=== PATIENT | male | born 1960 | race Caucasian/White ===

== ENCOUNTER 2024-01-16 17:49 | Inpatient (IN) ==
[2024-01-16] MEDS: SODIUM CHLORIDE 0.9% 1,000 ML IV ONE (18:24)
--- NOTE | 2024-01-16 18:41 | Emergency Department Note ---
Impression & Plan Acute renal failure (ARF), COVID-19 ED Provider Note Provider: Kerwin Boggs MD CHIEF COMPLAINT: Abnormal blood work, week of flu symptoms HISTORY OF PRESENT ILLNESS: Patient is a 63-year-old gentleman history of hypertension, GERD, and alcohol use presenting here today after abnormal blood work after an office visit today. Was in for chronic evaluation but states over the past week has had flulike symptoms. States has had a bit of a cough and some low-grade fevers and aches and pains and cramping. Nausea vomiting and diarrhea nonbloody reported. Little nauseous at times but denies any significant abdominal pain. Denies feeling significantly short of breath. Denies a history of kidney issues. Was called by his doctor's office as his blood work showed significant renal/kidney dysfunction was sent here for evaluation. Patient states has been trying to hydrate some has not vomited today but did have a little bit of diarrhea earlier. Limited food intake the last several days. Patient states he has been urinating although maybe a little darker than normal. PAST MEDICAL HISTORY: As noted above MEDICATIONS: Reviewed home medications SOCIAL HISTORY: , snuff, regular alcohol use PHYSICAL EXAM: GENERAL: alert and oriented in no acute distress on stretcher Head: normocephalic and atraumatic EYES: No injection, discharge or icterus. NECK: Trachea midline. Good range of motion ENT: Mucous membranes pink and moist. Pharynx without erythema or exudate. LUNGS: Airway patent. No retractions. Breath sounds clear with good air entry bilaterally. HEART: Regular rate and rhythm. No chest wall tenderness ABDOMEN: Soft and non-tender, without guarding or rebound. No masses appreciable SKIN: Acyanotic, warm, dry, without rashes EXTREMITIES: Without swelling, tenderness or deformity NEUROLOGICAL: No focal deficits. No aphasia. No facial droop or slurred speech. Normal strength and tone in the extremities. Sensation to gross touch normal. Ambulatory. EK bpm sinus bradycardia. No PVC or PAC. No acute ST segment elevation or depression with nonspecific T wave changes. QTc 453. CONTINUOUS CARDIAC MONITORING: was ordered and showed a heart rate of 50s to 60s bpm in sinus rhythm to sinus bradycardia Patient's laboratory studies and imaging reviewed. Differential includes Infection, dehydration, metabolic abnormality, hypo/hyperglycemia, electrolyte disturbance, anemia, hypoxia, cardiac sources, intracerebral event, toxicologic, neurologic, as well as other pathologies. IMPRESSION/MEDICAL DECISION MAKING: Vitals upon arrival with some bradycardia but no hypoxia, fever, or hypertension.. Viral panel sent given his week of symptoms. [id number] blood work and formal labs were sent seems to confirm evidence of significant acute renal dysfunction. Given a liter of IV fluid. Will obtain Noncon CT of the abdomen pelvis to look for any obstructive findings. Blood work without evidence of leukocytosis significant anemia. Will send troponin but no active chest pain reported. TSH earlier is normal. With his cough chest x-ray obtained. CT abdomen pelvis with evidence of hydronephrosis or stone. No bladder distention. No pleural effusions noted. Again formal blood work here also confirms mild hyponatremia but normal potassium and significantly of a creatinine of 18. No evidence of acute hepatitis noted. No CK or troponin elevation. Patient denies any NSAID usage. Has been taking his home blood pressure medicines. Does drink alcohol regular but not the last several days he has been sick. Patient does not seen any distress and do not see an emergent indication for dialysis at this time. Again started some rehydration and will bring in for further care and evaluation. Discussed with the hospitalist and did discuss with nephrology. Does incidentally test positive for COVID-19 likely inciting his weakness and URI symptoms. Did discuss with nephrology per hospitalist discussion and they will evaluate in the morning. DIAGNOSIS: Acute renal failure, COVID-19 DISPOSITION: Hospitalist will evaluate Patient was agreeable with this plan. 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 Alcohol dependence (Acute) Gout (Chronic) hx AA (alcohol abuse) (Chronic 02/21/12) Medical History Tinnitus of left ear History of seizure 30+ years ago "They don't even know what caused it. 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 No issues since Surgical History Hx of umbilical hernia repair H/O wisdom tooth extraction S/P T&A (status post tonsillectomy and adenoidectomy) Family History Father Myocardial infarction Other No family history of adverse response to anesthesia Denies family history of Ovarian cancer Prostate cancer Breast cancer Colorectal cancer Social History Smoking Status: Never smoker Tobacco Type: Smokeless Tobacco (Dip or Chew) Age Started Using Tobacco: 14; packs per day: 1; Second Hand Exposure: No; Do You Dip or Chew Tobacco: Yes; Hx Alcohol Use: Yes Alcohol type: beer Alcohol type Comment: 5 beers per day Alcohol Intake Frequency: Monthly or Less Hx Substance Use: No Preferred Language: Lao Communication Ability: Effective Visual Impairment: No Limitations Hearing Ability: Normal Branch Assistant Required: No Beliefs That Will Affect Care: None marital status: Current Living Situation: Spouse current occupational status: unemployed 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 How many Children do You have: 1 Other Information That Helps Us Care for You: No Feels Safe at Home: Yes Safety Concerns: Feels Safe At This Time Childhood Exposure to Second-Hand Smoke: Yes Diet: regular caffeine: Yes during the past year weight has: remained stable Dental Care, Regularly: Yes Physical Activity Frequency: Daily Seatbelt Use: always Sunscreen Use: Yes Assistive Devices: Contacts, Denture - Upper and Denture - Lower Allergies Allergies Allergy/AdvReac Type Severity Reaction Status Date / Time No Known Allergies Allergy Verified 01/16/24 09:51 Home Meds Home Medications Medication Instructions Recorded Confirmed allopurinol 100 mg tablet 100 mg PO QAM 11/27/23 01/16/24 cetirizine 10 mg tablet (Zyrtec) 10 mg PO HS PRN Allergies 11/27/23 01/16/24 famotidine 40 mg tablet (Pepcid) 40 mg PO BID PRN Acid Reflux 11/27/23 01/16/24 lisinopril 30 mg tablet 30 mg PO QAM 11/27/23 01/16/24 Previous Rx's Medication Instructions Recorded sildenafil 50 mg tablet 50 mg PO DAILY PRN sexual activity 04/20/23 #10 tabs indomethacin 50 mg capsule 50 mg PO BID PRN Gout Flare #60 06/07/23 caps amlodipine 10 mg tablet 10 mg PO HS #90 tabs 10/10/23 benzonatate 200 mg capsule 200 mg PO TID PRN cough #30 caps 01/10/24 ondansetron HCl 4 mg tablet 4 mg PO Q8H PRN nausea and 01/10/24 vomiting #30 tabs Results & Data (ED) Vital Signs Vital Signs - 24 hr 01/16/24 17:52 01/16/24 18:08 01/16/24 18:08 Temperature 36.0 C L Temperature Source Temporal Artery Scan Pulse Rate 63 Pulse Rate [Apical] 56 L Pulse Rhythm [Apical] Pulse Strength [Apical] Respiratory Rate 18 20 Respiratory Effort / Characteristics Non-Labored Respiratory Depth Normal Respiratory Pattern Blood Pressure 102/65 Blood Pressure [Right Arm] 132/73 Blood Pressure Mean 77 Blood Pressure Mean [Right Arm] 92 Blood Pressure Position [Right Arm] Pulse Oximetry 98 100 100 Oxygen Delivery Method Room Air Room Air Room Air Sepsis Recent Fever Within 48 Hours No Sepsis New/Unexplained Change in Mental Status N/A Sepsis Action Taken by Nursing No Action Required 01/16/24 18:10 01/16/24 20:00 Temperature Temperature Source Pulse Rate 58 L Pulse Rate [Apical] 61 Pulse Rhythm [Apical] Regular Pulse Strength [Apical] Normal Respiratory Rate 18 Respiratory Effort / Characteristics Non-Labored Respiratory Depth Normal Respiratory Pattern Regular Blood Pressure Blood Pressure [Right Arm] 96/55 L Blood Pressure Mean Blood Pressure Mean [Right Arm] 68 Blood Pressure Position [Right Arm] Sitting Pulse Oximetry 98 Oxygen Delivery Method Room Air Sepsis Recent Fever Within 48 Hours Sepsis New/Unexplained Change in Mental Status Sepsis Action Taken by Nursing Laboratory Data 01/16/24 18:10 01/16/24 22:37 Lab Results 01/16/24 01/16/24 Range/Units 18:10 18:31 WBC 7.94 (4.8-10.8) K/ul RBC 4.28 L (4.70-6.10) M/uL Hgb 14.3 (14.0-18.0) g/dl POC Hgb 12.6 L (14.0-18.0) g/dl Hct 38.7 L (42.0-52.0) % POC Hct 37 L (42-52) % MCV 90.4 (80.0-100.0) fL MCH 33.4 (25.0-34.0) pg MCHC 37.0 H (32.0-36.0) g/dL RDW Std Deviation 40.6 (36.4-46.3) fL RDW Coeff of Fuad 12.4 (11.5-14.5) % Plt Count 242 (130-400) K/uL MPV 10.7 (9.4-12.4) fL Immature Gran % (Auto) 0.6 % Neut % (Auto) 59.1 % Lymph % (Auto) 28.8 % [facility] % (Auto) 10.6 % Eos % (Auto) 0.5 % Baso % (Auto) 0.4 % Neut # (Auto) 4.69 (1.40-6.50) K/uL Lymph # (Auto) 2.29 (1.20-3.40) K/uL [facility] # (Auto) 0.84 H (0.11-0.59) K/uL Eos # (Auto) 0.04 (0.00-0.50) K/uL Baso # (Auto) 0.03 (0.00-0.20) K/uL Immature Gran # (Auto) 0.05 (0.01-0.20) K/uL PT 12.3 H (9.0-12.0) Seconds INR 1.1 (0.9-1.1) POC Sodium 131 L (135-144) mmol/L Sodium 132 L (136-145) mmol/L POC Potassium 3.4 (3.3-5.0) mmol/L Potassium 3.5 (3.5-5.1) mmol/L POC Chloride 100 L (101-112) mmol/L Chloride 96 L (98-107) mmol/L Carbon Dioxide 12 L (21-32) mmol/L POC Total CO2 12 L (24-31) mmol/L Anion Gap 24 H (3-11) POC Anion Gap 23.0 (16-25) mmol/L POC BUN 72 H (7-18) mg/dl BUN 72 H (6-23) mg/dl Creatinine 18.05 H* (0.6-1.4) mg/dl POC Creatinine > 20.0 H* (0.6-1.3) mg/dl Est Cr Clr Drug Dosing 4.5 ml/min eGFR 2.63 BUN/Creatinine Ratio 4.0 L (10-20) Glucose 114 H (70-99(Fasting)) mg/dl POC Glucose (other) 109 H (70-99) mg/dl Calcium 7.7 L (8.6-10.3) mg/dl POC Ioniz Calcium Sherry 0.92 L (1.12-1.32) mmol/l Magnesium 1.8 (1.7-2.4) mg/dl Total Bilirubin 0.5 (0.2-1.0) mg/dl AST 6 L (13-39) U/L ALT 12 (7-52) U/L Alkaline Phosphatase 71 (34-104) U/L Total Creatine Kinase 116 (30-223) U/L Troponin I High Sens 15.1 (0-20) pg/ml Total Protein 7.7 (6.0-8.3) gm/dl Albumin 4.2 (3.4-5.0) gm/dl Globulin 3.5 (2.5-4.0) gm/dl Albumin/Globulin Ratio 1.2 (0.9-2) Lipase 142 H (11-82) U/L Adenovirus (PCR) Not Detected (NotDetected) B. pertussis DNA (PCR) Not Detected (NotDetected) B.parapertussis DNA PCR Not Detected (NotDetected) C. pneumoniae DNA (PCR) Not Detected (NotDetected) Coronavirus OC43 (PCR) Not Detected (NotDetected) Coronavirus HKU1 (PCR) Not Detected (NotDetected) Coronavirus 229E (PCR) Not Detected (NotDetected) SARS-CoV-2 (PCR) DETECTED A (NotDetected) Coronavirus NL63 (PCR) Not Detected (NotDetected) Human Metapneumovir PCR Not Detected (NotDetected) Influenza Type A (PCR) Not Detected (NotDetected) Influenza Type B (PCR) Not Detected (NotDetected) M. pneumoniae (PCR) Not Detected (NotDetected) Parainfluenza 1 (PCR) Not Detected (NotDetected) Parainfluenza 2 (PCR) Not Detected (NotDetected) Parainfluenza 3 (PCR) Not Detected (NotDetected) Parainfluenza 4 (PCR) Not Detected (NotDetected) RSV (PCR) Not Detected (NotDetected) Entero/Rhino (PCR) Not Detected (NotDetected) Administered Medications Sodium Bicarbonate 150 meq/ (Dextrose) 1,150 mls @ 125 mls/hr IV .Q9H12M NARINDER Stop: 01/17/24 19:59 Last Admin: 01/16/24 21:12 Dose: 125 mls/hr Documented By: BETTY Discontinued Medications Sodium Chloride (Nss) 1,000 mls @ 999 mls/hr IV .Q1H1M ONE Stop: 01/16/24 19:20 Last Infusion: 01/16/24 19:28 Dose: Infused Documented By: Admin: 01/16/24 18:24 Dose: 999 mls/hr Documented By: [facility] Imaging Data Radiologist's Impression: Chest X-Ray 01/16/24 18:20 Exam(s): XR CXR 1 VIEW EXAM: XR Chest, 1 View CLINICAL HISTORY: Reason for exam: cough, weak. TECHNIQUE: Frontal view of the chest. COMPARISON: Chest radiograph on 11/24/2021 FINDINGS: Hardware: None. Lungs/pleura: Mild bibasilar atelectasis. No focal consolidation. No pleural effusion or pneumothorax. Heart/mediastinum: Borderline size of the cardiac silhouette. Soft tissues: Unremarkable. Bones: No acute fracture. Upper abdomen: Normal. IMPRESSION: No acute disease identified. Electronically signed by: Chris Briones M.D. 01/16/24 20:19 PM Abdomen/Pelvis CT 01/16/24 18:33 EXAM: CT Abdomen and Pelvis Without Intravenous Contrast INDICATION: Elevated renal function on routine blood work. TECHNIQUE: Axial computed tomography images of the abdomen and pelvis without intravenous contrast. Sagittal and coronal reformatted images were created and reviewed. This CT exam was performed using one or more of the following dose reduction techniques: automated exposure control, adjustment of the mA and/or kV according to patient size, and/or use of iterative reconstruction technique. COMPARISON: No relevant prior studies available. FINDINGS: Limitations: None. Lung bases: No abnormality noted. Pleural space: No visualized pleural effusion or pneumothorax. Heart: No abnormality noted. Mediastinum: No abnormality noted. ABDOMEN: Liver: Mild lobular appearance of the liver. No ductal dilatation. No visible mass. Gallbladder and bile ducts: Small gallstones noted. No ductal dilatation or stone. Pancreas: No pancreatic mass, calcification, inflammation or ductal dilation noted. Spleen: The spleen is enlarged measuring 13.5 cm long. Adrenals: No significant abnormality noted. Kidneys and ureters: No abnormality noted. No stones. No hydronephrosis. No significant perinephric fluid. Stomach and bowel: No distension or mucosal thickening. No inflammation noted. PELVIS: Appendix: Well seen and appears normal. Bladder: Incompletely distended and not optimally assessed. No gas or stone. Reproductive: No abnormalities noted. ABDOMEN and PELVIS: Intraperitoneal space: No free air. No significant fluid collection. Bones/joints: Degenerative changes noted throughout the spine. No acute osseous abnormality seen. Soft tissues: Bilateral inguinal hernias. Vasculature: Mild atherosclerosis scattered throughout the aorta. No aneurysm. Lymph nodes: No pathologically enlarged lymph nodes. IMPRESSION: 1. No hydronephrosis or kidney stone. The bladder is collapsed and not optimally assessed. No gross abnormality. 2. Nodular appearance of the liver typical of cirrhosis. Correlate clinically. 3. The spleen is enlarged measuring 13.5 cm long. 4. Cholelithiasis. ACT 112: Negative or not required by law. Electronically signed by Naty Felix 01-16-2024 6:58 PM Discharge Plan Visit Data Chief Complaint: Abnormal Labs/Diagnostic Testing Stated Complaint: ABNORMAL BLOOD WORK ED Provider: Kerwin Boggs Discharge Problem: Acute renal failure (ARF), COVID-19 Patient Disposition: Admitted As Inpatient Discharge Instructions Interventions: ED Discharge Assessment Last Done: 01/16/24 21:16 Discharge Problem: Acute renal failure (ARF) Qualifiers: Acute renal failure type: unspecified Qualified Code(s): N17.9 - Acute kidney failure, unspecified
[2024-01-16 18:43] LABS: iSTAT Blood Urea Nitrogen 72 mg/dl (7-18); iSTAT Carbon Dioxide 12 mmol/L (24-31); iSTAT Chloride 100 mmol/L (101-112); iSTAT Creatinine > 20.0 mg/dl (0.6-1.3); iSTAT Glucose 109 mg/dl (70-99); iSTAT Hematocrit 37 % (42-52); iSTAT Hemoglobin 12.6 g/dl (14.0-18.0); iSTAT Ionized Calcium 0.92 mmol/l (1.12-1.32); iSTAT Potassium 3.4 mmol/L (3.3-5.0); iSTAT Sodium 131 mmol/L (135-144)
[2024-01-16 18:49] LABS: INR 1.1 (0.9-1.1); Prothrombin Time 12.3 Seconds (9.0-12.0); Troponin I High Sensitivity 15.1 pg/ml (0-20)
[2024-01-16 18:50] LABS: Albumin Globulin Ratio 1.2 (0.9-2); Albumin Level 4.2 gm/dl (3.4-5.0); Bilirubin,Total 0.5 mg/dl (0.2-1.0); Calcium 7.7 mg/dl (8.6-10.3); Creatinine Clr Calc Pharmacy 4.5 ml/min; Globulin 3.5 gm/dl (2.5-4.0); Magnesium 1.8 mg/dl (1.7-2.4); Potassium 3.5 mmol/L (3.5-5.1); Total Protein 7.7 gm/dl (6.0-8.3)
[2024-01-16 18:53] LABS: Hematocrit (blood only) 38.7 % (42.0-52.0); Hemoglobin 14.3 g/dl (14.0-18.0); Mean Corpuscular Hemoglobin 33.4 pg (25.0-34.0); Mean Corpuscular Volume 90.4 fL (80.0-100.0); Mean Platelet Volume 10.7 fL (9.4-12.4); Platelet Count 242 K/uL (130-400); RDW Coefficient of Variation 12.4 % (11.5-14.5); RDW Standard Deviation 40.6 fL (36.4-46.3); Red Blood Count 4.28 M/uL (4.70-6.10); White Blood Count 7.94 K/ul (4.8-10.8)
[2024-01-16 18:56] LABS: Basophils # (auto) 0.03 K/uL (0.00-0.20); Basophils % (auto) 0.4 %; Eosinophils # (auto) 0.04 K/uL (0.00-0.50); Eosinophils % (auto) 0.5 %; Immature Granulocytes # (auto) 0.05 K/uL (0.01-0.20); Immature Granulocytes % (auto) 0.6 %; Lymphocytes # (auto) 2.29 K/uL (1.20-3.40); Lymphocytes % (auto) 28.8 %; Monocytes # (auto) 0.84 K/uL (0.11-0.59); Monocytes % (auto) 10.6 %; Neutrophils # (auto) 4.69 K/uL (1.40-6.50); Neutrophils % (auto) 59.1 %
--- NOTE | 2024-01-16 18:58 | CT Scan Report ---
EXAM: CT Abdomen and Pelvis Without Intravenous Contrast INDICATION: Elevated renal function on routine blood work. TECHNIQUE: Axial computed tomography images of the abdomen and pelvis without intravenous contrast. Sagittal and coronal reformatted images were created and reviewed. This CT exam was performed using one or more of the following dose reduction techniques: automated exposure control, adjustment of the mA and/or kV according to patient size, and/or use of iterative reconstruction technique. COMPARISON: No relevant prior studies available. FINDINGS: Limitations: None. Lung bases: No abnormality noted. Pleural space: No visualized pleural effusion or pneumothorax. Heart: No abnormality noted. Mediastinum: No abnormality noted. ABDOMEN: Liver: Mild lobular appearance of the liver. No ductal dilatation. No visible mass. Gallbladder and bile ducts: Small gallstones noted. No ductal dilatation or stone. Pancreas: No pancreatic mass, calcification, inflammation or ductal dilation noted. Spleen: The spleen is enlarged measuring 13.5 cm long. Adrenals: No significant abnormality noted. Kidneys and ureters: No abnormality noted. No stones. No hydronephrosis. No significant perinephric fluid. Stomach and bowel: No distension or mucosal thickening. No inflammation noted. PELVIS: Appendix: Well seen and appears normal. Bladder: Incompletely distended and not optimally assessed. No gas or stone. Reproductive: No abnormalities noted. ABDOMEN and PELVIS: Intraperitoneal space: No free air. No significant fluid collection. Bones/joints: Degenerative changes noted throughout the spine. No acute osseous abnormality seen. Soft tissues: Bilateral inguinal hernias. Vasculature: Mild atherosclerosis scattered throughout the aorta. No aneurysm. Lymph nodes: No pathologically enlarged lymph nodes. IMPRESSION: 1. No hydronephrosis or kidney stone. The bladder is collapsed and not optimally assessed. No gross abnormality. 2. Nodular appearance of the liver typical of cirrhosis. Correlate clinically. 3. The spleen is enlarged measuring 13.5 cm long. 4. Cholelithiasis. ACT 112: Negative or not required by law. Electronically signed by Naty Felix 01-16-2024 6:58 PM
[2024-01-16 19:10] LABS: Adenovirus PCR Not Detected (NotDetected); Bordetella parapertussis PCR Not Detected (NotDetected); Bordetella pertussis PCR Not Detected (NotDetected); Chlamydia pneumoniae PCR Not Detected (NotDetected); Coronavirus 229E PCR Not Detected (NotDetected); Coronavirus CoV-2 (COVID19)PCR DETECTED (NotDetected); Coronavirus HKU1 PCR Not Detected (NotDetected); Coronavirus NL63 PCR Not Detected (NotDetected); Coronavirus OC43PCR Not Detected (NotDetected); Human Metapneumovirus PCR Not Detected (NotDetected); Influenza A PCR Not Detected (NotDetected); Influenza B PCR Not Detected (NotDetected); Mycoplasma pneumoniae PCR Not Detected (NotDetected); Parainfluenza Virus 1 PCR Not Detected (NotDetected); Parainfluenza Virus 2 PCR Not Detected (NotDetected); Parainfluenza Virus 3 PCR Not Detected (NotDetected); Parainfluenza Virus 4 PCR Not Detected (NotDetected); Respiratory Syncytial VirusPCR Not Detected (NotDetected); Rhinovirus/Enterovirus PCR Not Detected (NotDetected)
--- NOTE | 2024-01-16 20:20 | XRay Report ---
Exam(s): XR CXR 1 VIEW EXAM: XR Chest, 1 View CLINICAL HISTORY: Reason for exam: cough, weak. TECHNIQUE: Frontal view of the chest. COMPARISON: Chest radiograph on 11/24/2021 FINDINGS: Hardware: None. Lungs/pleura: Mild bibasilar atelectasis. No focal consolidation. No pleural effusion or pneumothorax. Heart/mediastinum: Borderline size of the cardiac silhouette. Soft tissues: Unremarkable. Bones: No acute fracture. Upper abdomen: Normal. IMPRESSION: No acute disease identified. Electronically signed by: Chris Briones M.D. 01/16/24 20:19 PM
[2024-01-16] MEDS: SODIUM BICARBONATE 8.4% 150 MEQ in DEXTROSE 5% 1,000 ML IV SCH (21:12)
[2024-01-16] MEDS ORDERED: ACETAMINOPHEN 325 MG TAB PO PRN (21:42)
[2024-01-16] MEDS ORDERED: ONDANSETRON INJ 2 MG/ML 2 ML VIAL IV PRN (21:42)
--- NOTE | 2024-01-16 21:48 | History & Physical Report ---
Date of Service January 16, 2024 Assessment & Plan (1) Acute renal failure (ARF): (2) Gastroenteritis due to COVID-19 virus: (3) GERD without esophagitis: (4) Hypertension: (5) COVID-19: (6) Liver cirrhosis: Plan Acute renal failure- Creatinine on admission 18.05, with base 1.13 5 days ago Likely secondary to fluid losses from COVID gastroenteritis Status post 1 L normal saline bolus from the ED Place on bicarb drip 150 mEq at 125 mL/h BMP every 4 hours Hold amlodipine, lisinopril Consult nephrology COVID gastroenteritis- Symptoms have been going on for about 10 days Supportive treatment as above Liver cirrhosis- History of alcohol abuse Admission and Anticipated Discharge Date Admission Date: January 16, 2024 History of Present Illness Chief Complaint: The patient presents to the emergency department after being referred from the outpatient physician office, due to an elevated creatinine Primary Care Provider: RIGO Nash The patient is a 63-year-old male with a past medical history including GERD without esophagitis, hypertension, alcohol withdrawal, alcohol dependence, and gout. He has been having issues with flulike symptoms, with low-grade fevers and cough, with generalized muscle aches, and had been seen in the outpatient office with routine laboratories performed on 01/09 with a creatinine of 1.13. Due to persistent symptoms, patient had outpatient laboratories performed on the day of 01/09, and creatinine at that point was 18.05, and he was referred to the ED for evaluation for admission. His principal symptoms continue to be that of primarily of fatigue, generalized muscle aches and lethargy. Allergies Allergy/AdvReac Type Severity Reaction Status Date / Time No Known Allergies Allergy Verified 01/16/24 09:51 Home Medications Medication Instructions Recorded Confirmed Type sildenafil 50 mg tablet 50 mg PO DAILY PRN sexual activity 04/20/23 01/16/24 Rx #10 tabs indomethacin 50 mg capsule 50 mg PO BID PRN Gout Flare #60 06/07/23 01/16/24 Rx caps amlodipine 10 mg tablet 10 mg PO HS #90 tabs 10/10/23 01/16/24 Rx allopurinol 100 mg tablet 100 mg PO QAM 11/27/23 01/16/24 History cetirizine 10 mg tablet (Zyrtec) 10 mg PO HS PRN Allergies 11/27/23 01/16/24 History famotidine 40 mg tablet (Pepcid) 40 mg PO BID PRN Acid Reflux 11/27/23 01/16/24 History lisinopril 30 mg tablet 30 mg PO QAM 11/27/23 01/16/24 History benzonatate 200 mg capsule 200 mg PO TID PRN cough #30 caps 01/10/24 01/16/24 Rx ondansetron HCl 4 mg tablet 4 mg PO Q8H PRN nausea and 01/10/24 01/16/24 Rx vomiting #30 tabs Past Med/Surg History Problem List (Updated 01/17/24 @ 02:59 by Johnathon Montejo MD) Gastroenteritis due to COVID-19 virus Liver cirrhosis COVID-19 (Acute) Acute renal failure (ARF) (Acute) Bilateral tinnitus Changing skin lesion 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 Alcohol dependence (Acute) Gout (Chronic) hx AA (alcohol abuse) (Chronic 02/21/12) Medical History Tinnitus of left ear History of seizure 30+ years ago "They don't even know what caused it. 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 No issues since Surgical History Hx of umbilical hernia repair H/O wisdom tooth extraction S/P T&A (status post tonsillectomy and adenoidectomy) Family History Father Myocardial infarction Other No family history of adverse response to anesthesia Denies family history of Ovarian cancer Prostate cancer Breast cancer Colorectal cancer Social History Smoking Status: Never smoker Tobacco Type: Smokeless Tobacco (Dip or Chew) Age Started Using Tobacco: 14; packs per day: 1; Second Hand Exposure: No; Do You Dip or Chew Tobacco: Yes; Hx Alcohol Use: Yes Alcohol type: beer Alcohol type Comment: 5 beers per day Alcohol Intake Frequency: Monthly or Less Hx Substance Use: No Preferred Language: Georgian Communication Ability: Effective Visual Impairment: No Limitations Hearing Ability: Normal 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 Beliefs That Will Affect Care: None marital status: Current Living Situation: Spouse current occupational status: unemployed 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 How many Children do You have: 1 Other Information That Helps Us Care for You: No Feels Safe at Home: Yes Safety Concerns: Feels Safe At This Time Childhood Exposure to Second-Hand Smoke: Yes Diet: regular caffeine: Yes during the past year weight has: remained stable Dental Care, Regularly: Yes Physical Activity Frequency: Daily Seatbelt Use: always Sunscreen Use: Yes Assistive Devices: Contacts, Denture - Upper and Denture - Lower Review of Systems Review of Systems: The patient denies chest pain, palpitations, lower extremity swelling, sore throat, fevers, chills, sweats, nausea, vomiting, diarrhea , constipation, abdominal pain, pelvic pain, blood in urine or stool, dysuria, urinary frequency or urgency, lightheadedness, dizziness, headache, memory loss, loss of consciousness, rash, abnormal bruising or bleeding, imbalance, focal weakness, numbness or tingling in arms or legs, likelyk or neck pain, or night sweats. The review of systems is otherwise negative other than for that already noted above, and at least 10 systems have been reviewed. Physical Exam Physical Exam: The patient is awake, alert and oriented 3, well developed and well nourished, normocephalic and atraumatic, lying in bed and in no acute distress. HEENT--PERRL, EOMI, mucous membranes and oropharynx dry. Neck--supple. No JVD. No bruits. Thyroid normal, trachea midline, no adenopathy. Heart--normal S1 and S2. No murmurs, rubs or gallops. Lungs--clear bilaterally, no respiratory distress, no accessory muscle use. Abdomen--normal bowel sounds and soft. Nontender. Nondistended, no hernias or masses, no organomegaly. Extremities-- No edema Dermatologic--normal skin turgor, normal color, no abnormal lymph nodes, no rash. Neurologic--cranial nerves II through XII grossly intact. Rheumatologic--normal range of motion. Psychiatric--normal affect. Results & Data Results & Data Vital Signs (Past 12 Hours) Vital Signs Temp Pulse Pulse Resp BP BP Pulse Ox 01/16/24 21:16 58 L 18 101/56 L 99 01/16/24 20:00 61 18 96/55 L 98 01/16/24 18:10 58 L 01/16/24 18:08 100 01/16/24 18:08 56 L 20 132/73 100 01/16/24 17:52 36.0 C L 63 18 102/65 98 O2 Del Method 01/16/24 21:16 Room Air 01/16/24 20:00 Room Air 01/16/24 18:10 01/16/24 18:08 Room Air 01/16/24 18:08 Room Air 01/16/24 17:52 Room Air Laboratory Results Laboratory Results WBC 7.94 K/ul (4.8-10.8) 01/16/24 18:10 RBC 4.28 M/uL (4.70-6.10) L 01/16/24 18:10 Hgb 14.3 g/dl (14.0-18.0) 01/16/24 18:10 POC Hgb 12.6 g/dl (14.0-18.0) L 01/16/24 18:31 Hct 38.7 % (42.0-52.0) L 01/16/24 18:10 POC Hct 37 % (42-52) L 01/16/24 18:31 MCV 90.4 fL (80.0-100.0) 01/16/24 18:10 MCH 33.4 pg (25.0-34.0) 01/16/24 18:10 MCHC 37.0 g/dL (32.0-36.0) H 01/16/24 18:10 RDW Std Deviation 40.6 fL (36.4-46.3) 01/16/24 18:10 RDW Coeff of Fuad 12.4 % (11.5-14.5) 01/16/24 18:10 Plt Count 242 K/uL (130-400) 01/16/24 18:10 MPV 10.7 fL (9.4-12.4) 01/16/24 18:10 Immature Gran % (Auto) 0.6 % 01/16/24 18:10 Neut % (Auto) 59.1 % 01/16/24 18:10 Lymph % (Auto) 28.8 % 01/16/24 18:10 [place] % (Auto) 10.6 % 01/16/24 18:10 Eos % (Auto) 0.5 % 01/16/24 18:10 Baso % (Auto) 0.4 % 01/16/24 18:10 Neut # (Auto) 4.69 K/uL (1.40-6.50) 01/16/24 18:10 Lymph # (Auto) 2.29 K/uL (1.20-3.40) 01/16/24 18:10 [place] # (Auto) 0.84 K/uL (0.11-0.59) H 01/16/24 18:10 Eos # (Auto) 0.04 K/uL (0.00-0.50) 01/16/24 18:10 Baso # (Auto) 0.03 K/uL (0.00-0.20) 01/16/24 18:10 Immature Gran # (Auto) 0.05 K/uL (0.01-0.20) 01/16/24 18:10 PT 12.3 Seconds (9.0-12.0) H 01/16/24 18:10 INR 1.1 (0.9-1.1) 01/16/24 18:10 POC Sodium 131 mmol/L (135-144) L 01/16/24 18:31 Sodium 131 mmol/L (136-145) L 01/16/24 22:37 POC Potassium 3.4 mmol/L (3.3-5.0) 01/16/24 18:31 Potassium 3.4 mmol/L (3.5-5.1) L 01/16/24 22:37 POC Chloride 100 mmol/L (101-112) L 01/16/24 18:31 Chloride 98 mmol/L (98-107) 01/16/24 22:37 Carbon Dioxide 12 mmol/L (21-32) L 01/16/24 22:37 POC Total CO2 12 mmol/L (24-31) L 01/16/24 18:31 Anion Gap 21 (3-11) H 01/16/24 22:37 POC Anion Gap 23.0 mmol/L (16-25) 01/16/24 18:31 POC BUN 72 mg/dl (7-18) H 01/16/24 18:31 BUN 71 mg/dl (6-23) H 01/16/24 22:37 Creatinine 18.94 mg/dl (0.6-1.4) H* D 01/16/24 22:37 POC Creatinine > 20.0 mg/dl (0.6-1.3) H* 01/16/24 18:31 Est Cr Clr Drug Dosing 4.4 ml/min 01/16/24 22:37 eGFR 2.48 01/16/24 22:37 BUN/Creatinine Ratio 3.7 (10-20) L 01/16/24 22:37 Glucose 108 mg/dl (70-99(Fasting)) H 01/16/24 22:37 POC Glucose (other) 109 mg/dl (70-99) H 01/16/24 18:31 Calcium 7.1 mg/dl (8.6-10.3) L 01/16/24 22:37 POC Ioniz Calcium Sherry 0.92 mmol/l (1.12-1.32) L 01/16/24 18:31 Magnesium 1.8 mg/dl (1.7-2.4) 01/16/24 18:10 Total Bilirubin 0.5 mg/dl (0.2-1.0) 01/16/24 18:10 AST 6 U/L (13-39) L 01/16/24 18:10 ALT 12 U/L (7-52) 01/16/24 18:10 Alkaline Phosphatase 71 U/L (34-104) 01/16/24 18:10 Total Creatine Kinase 116 U/L (30-223) 01/16/24 18:10 Troponin I High Sens 15.1 pg/ml (0-20) 01/16/24 18:10 Total Protein 7.7 gm/dl (6.0-8.3) 01/16/24 18:10 Albumin 4.2 gm/dl (3.4-5.0) 01/16/24 18:10 Globulin 3.5 gm/dl (2.5-4.0) 01/16/24 18:10 Albumin/Globulin Ratio 1.2 (0.9-2) 01/16/24 18:10 Lipase 142 U/L (11-82) H 01/16/24 18:10 Adenovirus (PCR) Not Detected (NotDetected) 01/16/24 18:10 B. pertussis DNA (PCR) Not Detected (NotDetected) 01/16/24 18:10 B.parapertussis DNA PCR Not Detected (NotDetected) 01/16/24 18:10 C. pneumoniae DNA (PCR) Not Detected (NotDetected) 01/16/24 18:10 Coronavirus OC43 (PCR) Not Detected (NotDetected) 01/16/24 18:10 Coronavirus HKU1 (PCR) Not Detected (NotDetected) 01/16/24 18:10 Coronavirus 229E (PCR) Not Detected (NotDetected) 01/16/24 18:10 SARS-CoV-2 (PCR) DETECTED (NotDetected) A 01/16/24 18:10 Coronavirus NL63 (PCR) Not Detected (NotDetected) 01/16/24 18:10 Human Metapneumovir PCR Not Detected (NotDetected) 01/16/24 18:10 Influenza Type A (PCR) Not Detected (NotDetected) 01/16/24 18:10 Influenza Type B (PCR) Not Detected (NotDetected) 01/16/24 18:10 M. pneumoniae (PCR) Not Detected (NotDetected) 01/16/24 18:10 Parainfluenza 1 (PCR) Not Detected (NotDetected) 01/16/24 18:10 Parainfluenza 2 (PCR) Not Detected (NotDetected) 01/16/24 18:10 Parainfluenza 3 (PCR) Not Detected (NotDetected) 01/16/24 18:10 Parainfluenza 4 (PCR) Not Detected (NotDetected) 01/16/24 18:10 RSV (PCR) Not Detected (NotDetected) 01/16/24 18:10 Entero/Rhino (PCR) Not Detected (NotDetected) 01/16/24 18:10 Impressions Chest X-Ray 01/16/24 18:20 Exam(s): XR CXR 1 VIEW EXAM: XR Chest, 1 View CLINICAL HISTORY: Reason for exam: cough, weak. TECHNIQUE: Frontal view of the chest. COMPARISON: Chest radiograph on 11/24/2021 FINDINGS: Hardware: None. Lungs/pleura: Mild bibasilar atelectasis. No focal consolidation. No pleural effusion or pneumothorax. Heart/mediastinum: Borderline size of the cardiac silhouette. Soft tissues: Unremarkable. Bones: No acute fracture. Upper abdomen: Normal. IMPRESSION: No acute disease identified. Electronically signed by: Chris Briones M.D. 01/16/24 20:19 PM Abdomen/Pelvis CT 01/16/24 18:33 EXAM: CT Abdomen and Pelvis Without Intravenous Contrast INDICATION: Elevated renal function on routine blood work. TECHNIQUE: Axial computed tomography images of the abdomen and pelvis without intravenous contrast. Sagittal and coronal reformatted images were created and reviewed. This CT exam was performed using one or more of the following dose reduction techniques: automated exposure control, adjustment of the mA and/or kV according to patient size, and/or use of iterative reconstruction technique. COMPARISON: No relevant prior studies available. FINDINGS: Limitations: None. Lung bases: No abnormality noted. Pleural space: No visualized pleural effusion or pneumothorax. Heart: No abnormality noted. Mediastinum: No abnormality noted. ABDOMEN: Liver: Mild lobular appearance of the liver. No ductal dilatation. No visible mass. Gallbladder and bile ducts: Small gallstones noted. No ductal dilatation or stone. Pancreas: No pancreatic mass, calcification, inflammation or ductal dilation noted. Spleen: The spleen is enlarged measuring 13.5 cm long. Adrenals: No significant abnormality noted. Kidneys and ureters: No abnormality noted. No stones. No hydronephrosis. No significant perinephric fluid. Stomach and bowel: No distension or mucosal thickening. No inflammation noted. PELVIS: Appendix: Well seen and appears normal. Bladder: Incompletely distended and not optimally assessed. No gas or stone. Reproductive: No abnormalities noted. ABDOMEN and PELVIS: Intraperitoneal space: No free air. No significant fluid collection. Bones/joints: Degenerative changes noted throughout the spine. No acute osseous abnormality seen. Soft tissues: Bilateral inguinal hernias. Vasculature: Mild atherosclerosis scattered throughout the aorta. No aneurysm. Lymph nodes: No pathologically enlarged lymph nodes. IMPRESSION: 1. No hydronephrosis or kidney stone. The bladder is collapsed and not optimally assessed. No gross abnormality. 2. Nodular appearance of the liver typical of cirrhosis. Correlate clinically. 3. The spleen is enlarged measuring 13.5 cm long. 4. Cholelithiasis. ACT 112: Negative or not required by law. Electronically signed by Naty Felix 01-16-2024 6:58 PM White people can just flecking replace things will be elevated BH Code Status & VTE Plan Code Status Full code VTE Prophylaxis Plan VTE Prophylaxis will be ordered: Yes PG Care Time/CCT Total # of Minutes Spent Total Time Spent with Patient: Total time spent is greater than 50% in coordination of care (as documented) at patient's floor/unit and/or counseling patient: Coding Level of Care Code 54802 INT INP/OBS CARE 375MIN Diagnoses Acute renal failure (ARF) N17.9 Acute renal failure type: unspecified Gastroenteritis due to COVID-19 virus U07.1; A08.39 GERD without esophagitis K21.9 Hypertension I10 COVID-19 U07.1 Liver cirrhosis K74.60 (1) Acute renal failure (ARF) Acute renal failure type: unspecified Qualified Code(s): N17.9 - Acute kidney failure, unspecified
[2024-01-16 23:30] LABS: BUN Creatinine Ratio 3.7 (10-20); Calcium 7.1 mg/dl (8.6-10.3); Creatinine Clr Calc Pharmacy 4.4 ml/min; Potassium 3.4 mmol/L (3.5-5.1)
[2024-01-17] MEDS: HEPARIN SOD 5,000 UNIT/0.5 ML VIAL SQ SCH (00:13)
[2024-01-17 03:21] LABS: Calcium 6.8 mg/dl (8.6-10.3); Creatinine Clr Calc Pharmacy 4.6 ml/min; Potassium 3.2 mmol/L (3.5-5.1)
[2024-01-17 05:57] LABS: Albumin Globulin Ratio 1.4 (0.9-2); Albumin Level 3.5 gm/dl (3.4-5.0); BUN Creatinine Ratio 3.9 (10-20); Bilirubin,Total 0.4 mg/dl (0.2-1.0); Calcium 6.8 mg/dl (8.6-10.3); Creatinine Clr Calc Pharmacy 4.5 ml/min; Globulin 2.5 gm/dl (2.5-4.0); Magnesium 1.5 mg/dl (1.7-2.4)
[2024-01-17 06:02] LABS: BUN Creatinine Ratio 3.9 (10-20); Calcium 6.7 mg/dl (8.6-10.3); Creatinine Clr Calc Pharmacy 4.6 ml/min
[2024-01-17 06:06] LABS: Mean Corpuscular Hemoglobin 32.9 pg (25.0-34.0); Mean Corpuscular Hgb Conc 36.4 g/dL (32.0-36.0); Mean Corpuscular Volume 90.4 fL (80.0-100.0); Mean Platelet Volume 10.9 fL (9.4-12.4); Platelet Count 195 K/uL (130-400); RDW Coefficient of Variation 12.2 % (11.5-14.5); RDW Standard Deviation 40.1 fL (36.4-46.3); Red Blood Count 3.65 M/uL (4.70-6.10); White Blood Count 5.55 K/ul (4.8-10.8)
[2024-01-17 06:07] LABS: Echinocytes 1+; Eosinophils # (auto) 0.05 K/uL (0.00-0.50); Eosinophils % (auto) 0.9 %; Lymphocytes # (auto) 1.35 K/uL (1.20-3.40); Lymphocytes % (auto) 24.3 %; Neutrophils # (auto) 3.65 K/uL (1.40-6.50); Neutrophils % (auto) 65.8 %
[2024-01-17 09:08] LABS: Appearance Urine Cloudy (Clear); Bacteria Urine Automated None Seen (None Seen); Bilirubin Urine Negative (Negative); Blood Urine Negative (Negative); Cast Urine Automated >20 /lpf (0-2); Color Urine Yellow; Glucose Urine UA Negative (Negative); Ketones Urine Trace (Negative); Leukocyte Esterase Urine Trace (Negative); Mucus Urine Present (None Prsent); Nitrite Urine Negative (Negative); Protein Urine 1+ (Negative); Specific Gravity Urine 1.018 (1.000-1.030); Urobilinogen Urine Negative (Negative)
--- NOTE | 2024-01-17 09:31 | Nephrology Consultation ---
Date of Consultation January 17, 2024 Assessment & Plan (1) Acute renal failure (ARF): Oliguric. Volume depleted, hypovolemic. Electrolytes acceptable. Denies uremic symptoms. There is no emergent indication for dialysis at this time. CT demonstrating decompressed bladder. No evidence of obstruction. Kidneys are otherwise normal. Urine +WBC, +RBC, +protein. I cannot exclude GN. Serologic evaluation has been requested with next labs. Continue IVF to encourage positive fluid balance. W+150 mEq NaHCO3 infusing. Document strict I/O's. Boswell placement. KCl and oral NaCl replacement ordered this AM for hypokalemia and hyponatremia. Repeat metabolic profile ordered for this afternoon. (2) Metabolic acidosis: Attributed to GI losses and acute kidney injury. Continue NaHCO3. (3) COVID-19: Plan of care discussed with Dr. Deluna this AM. (4) Liver cirrhosis: (5) Gastroenteritis due to COVID-19 virus: History of Present Illness Reason for Consultation: acute renal failure, COVID gastroenteritis Requesting Physician: Karla Deluna MD Attending Physician: Karla Deluna MD History of Present Illness Mr. Wade Clement is a 63 year-old male with hypertension, GERD, gout, and a history of alcohol dependence with CT evidence of cirrhosis. Wade was referred to the ER at [facility] yesterday by his PCP for evaluation of [facility]. Serum creatinine measured at 18.9 mg/dL. Creatinine was previously 1.1 mg/dL in April. Wade presented to his PCP ~10 days of flulike symptoms and diarrhea. He reported subjective low grade fevers, cough, myalgias, and watery diarrhea. Wade denies any change in his urine output. He denies any urinary symptoms. Appetite has been fair. He did vomit several times but not within the past 48 hours. He is not experiencing abdominal pain or discomfort. He is not currently experiencing fevers or chills. He denies chest pains or palpitations. He denies shortness of breath. He denies any fluid retention or edema. He is maintained on amlodipine and lisinopril for hypertension. No new or recent changes in medications. Wade had taken several doses of Ibuprofen (~800 mg daily) but denies any other NSAID use. He has not had any skin rashes or lesions. He has remained relatively oliguric, voiding 100 ml of concentrated urine this AM. Bladder is decompression and there is no evidence of hydronephrosis on CT scan. Kidneys are otherwise normal in appearance. Urine microscopy demonstrating 11-20 WBC, 6-10 RBC, >20 hyaline casts. UA +1 protein. Wade is tolerating aggressive IV hydration well. He has received ~3 L of IVF and NaHCO3 is infusing. SARS-COV2 +. Allergies Allergy/AdvReac Type Severity Reaction Status Date / Time No Known Allergies Allergy Verified 01/16/24 09:51 Home Medications Medication Instructions Recorded Confirmed Type sildenafil 50 mg tablet 50 mg PO DAILY PRN sexual activity 04/20/23 01/16/24 Rx #10 tabs indomethacin 50 mg capsule 50 mg PO BID PRN Gout Flare #60 06/07/23 01/16/24 Rx caps amlodipine 10 mg tablet 10 mg PO HS #90 tabs 10/10/23 01/16/24 Rx allopurinol 100 mg tablet 100 mg PO QAM 11/27/23 01/16/24 History cetirizine 10 mg tablet (Zyrtec) 10 mg PO HS PRN Allergies 11/27/23 01/16/24 History famotidine 40 mg tablet (Pepcid) 40 mg PO BID PRN Acid Reflux 11/27/23 01/16/24 History lisinopril 30 mg tablet 30 mg PO QAM 11/27/23 01/16/24 History benzonatate 200 mg capsule 200 mg PO TID PRN cough #30 caps 01/10/24 01/16/24 Rx ondansetron HCl 4 mg tablet 4 mg PO Q8H PRN nausea and 01/10/24 01/16/24 Rx vomiting #30 tabs Patient History Medical History Tinnitus of left ear History of seizure 30+ years ago "They don't even know what caused it. 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 No issues since Surgical History Hx of umbilical hernia repair H/O wisdom tooth extraction S/P T&A (status post tonsillectomy and adenoidectomy) Family History Father Myocardial infarction Other No family history of adverse response to anesthesia Denies family history of Ovarian cancer Prostate cancer Breast cancer Colorectal cancer Social History Smoking Status: Never smoker Tobacco Type: Smokeless Tobacco (Dip or Chew) Age Started Using Tobacco: 14; packs per day: 1; Second Hand Exposure: No; Do You Dip or Chew Tobacco: Yes; Hx Alcohol Use: Yes Alcohol type: beer Alcohol type Comment: 5 beers per day Alcohol Intake Frequency: Monthly or Less Hx Substance Use: No Preferred Language: Belarusian Communication Ability: Effective Visual Impairment: No Limitations Hearing Ability: Normal Drop Clipper Required: No Beliefs That Will Affect Care: None marital status: Current Living Situation: Spouse current occupational status: unemployed 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 How many Children do You have: 1 Other Information That Helps Us Care for You: No Feels Safe at Home: Yes Safety Concerns: Feels Safe At This Time Childhood Exposure to Second-Hand Smoke: Yes Diet: regular caffeine: Yes during the past year weight has: remained stable Dental Care, Regularly: Yes Physical Activity Frequency: Daily Seatbelt Use: always Sunscreen Use: Yes Assistive Devices: Contacts, Denture - Upper and Denture - Lower Review of Systems Review of Systems: All systems reviewed & are unremarkable except as noted in HPI & below Constitutional: + fatigue; no fever, no chills and no an orexia Gastrointestinal: + diarrhea/loose stools; no abdominal pa in, no blood in stools and no melena Genitourinary: no dysuria, no difficulty urinating, no urinary frequency, no urinary hesitancy or no hematuria Musculoskeletal: + myalgia Physical Exam Constitutional: well developed; no acute distress Eyes: + anicteric sclerae; no conjunctival abn ormality ENMT: Mouth: + dry oral mucous membranes; no oral mucosal abnormality Neck: normal visual inspection and trachea midline Respiratory: normal respiratory effort Auscultation: lungs clear to auscultation bilaterally Cardiovascular: Rate/Rhythm: regular rate Heart Sounds: normal S1 and normal S2 Vessels: no JVD Extremities: no edema Musculoskeletal: Extremities: no cyanosis and no clubbing Skin: normal turgor; no lesions Neurologic: Motor/Sensory: no tremor and no asterixis Psychiatric: Orientation: alert and oriented x 3 Results & Data Vital Signs (Past 12 Hours) Vital Signs Temp Pulse Pulse Resp BP Pulse Ox O2 Del Method 01/17/24 08:29 36.3 C L 57 L 18 107/63 97 Room Air 01/17/24 07:26 55 L 01/17/24 03:27 36.4 C L 60 18 97/56 L 98 Room Air 01/17/24 03:17 91 H 01/16/24 21:42 36.4 C L 67 18 127/68 99 Room Air Laboratory Results Laboratory Results - last 24 hr 01/16/24 01/16/24 01/16/24 18:10 18:31 22:37 WBC 7.94 RBC 4.28 L Hgb 14.3 POC Hgb 12.6 L Hct 38.7 L POC Hct 37 L MCV 90.4 MCH 33.4 MCHC 37.0 H RDW Std Deviation 40.6 RDW Coeff of Fuad 12.4 Plt Count 242 MPV 10.7 Immature Gran % (Auto) 0.6 Neut % (Auto) 59.1 Lymph % (Auto) 28.8 [place] % (Auto) 10.6 Eos % (Auto) 0.5 Baso % (Auto) 0.4 Neut # (Auto) 4.69 Lymph # (Auto) 2.29 [place] # (Auto) 0.84 H Eos # (Auto) 0.04 Baso # (Auto) 0.03 Immature Gran # (Auto) 0.05 Echinocytes PT 12.3 H INR 1.1 POC Sodium 131 L Sodium 132 L 131 L POC Potassium 3.4 Potassium 3.5 3.4 L POC Chloride 100 L Chloride 96 L 98 Carbon Dioxide 12 L 12 L POC Total CO2 12 L Anion Gap 24 H 21 H POC Anion Gap 23.0 POC BUN 72 H BUN 72 H 71 H Creatinine 18.05 H* 18.94 H* D POC Creatinine > 20.0 H* Est Cr Clr Drug Dosing 4.5 4.4 eGFR 2.63 2.48 BUN/Creatinine Ratio 4.0 L 3.7 L Glucose 114 H 108 H POC Glucose (other) 109 H Calcium 7.7 L 7.1 L POC Ioniz Calcium Sherry 0.92 L Magnesium 1.8 Total Bilirubin 0.5 AST 6 L ALT 12 Alkaline Phosphatase 71 Total Creatine Kinase 116 Troponin I High Sens 15.1 Total Protein 7.7 Albumin 4.2 Globulin 3.5 Albumin/Globulin Ratio 1.2 Lipase 142 H Urine Color Urine Appearance Urine pH Ur Specific [place] Urine Protein Urine Glucose (UA) Urine Ketones Urine Blood Urine Nitrite Urine Bilirubin Urine Urobilinogen Ur Leukocyte Esterase Urine WBC (Auto) Urine RBC (Auto) U Hyaline Cast (Auto) U Epithel Cells (Auto) Urine Bacteria (Auto) Urine Mucus Adenovirus (PCR) Not Detected B. pertussis DNA (PCR) Not Detected B.parapertussis DNA PCR Not Detected C. pneumoniae DNA (PCR) Not Detected Coronavirus OC43 (PCR) Not Detected Coronavirus HKU1 (PCR) Not Detected Coronavirus 229E (PCR) Not Detected SARS-CoV-2 (PCR) DETECTED A Coronavirus NL63 (PCR) Not Detected Human Metapneumovir PCR Not Detected Influenza Type A (PCR) Not Detected Influenza Type B (PCR) Not Detected M. pneumoniae (PCR) Not Detected Parainfluenza 1 (PCR) Not Detected Parainfluenza 2 (PCR) Not Detected Parainfluenza 3 (PCR) Not Detected Parainfluenza 4 (PCR) Not Detected RSV (PCR) Not Detected Entero/Rhino (PCR) Not Detected 01/17/24 01/17/24 01/17/24 02:13 04:22 04:22 WBC 5.55 RBC 3.65 L Hgb 12.0 L POC Hgb Hct 33.0 L POC Hct MCV 90.4 MCH 32.9 MCHC 36.4 H RDW Std Deviation 40.1 RDW Coeff of Fuad 12.2 Plt Count 195 MPV 10.9 Immature Gran % (Auto) 0.0 Neut % (Auto) 65.8 Lymph % (Auto) 24.3 [place] % (Auto) 9.0 Eos % (Auto) 0.9 Baso % (Auto) 0.0 Neut # (Auto) 3.65 Lymph # (Auto) 1.35 [place] # (Auto) 0.50 Eos # (Auto) 0.05 Baso # (Auto) 0.00 Immature Gran # (Auto) 0.00 L Echinocytes 1+ PT INR POC Sodium Sodium 133 L 130 L 130 L POC Potassium Potassium 3.2 L 3.0 L POC Chloride Chloride 98 Carbon Dioxide 13 L POC Total CO2 Anion Gap 22 H POC Anion Gap POC BUN BUN 73 H Creatinine 18.26 H* D POC Creatinine Est Cr Clr Drug Dosing 4.6 eGFR 2.59 BUN/Creatinine Ratio 4.0 L Glucose 106 H POC Glucose (other) Calcium 6.8 L POC Ioniz Calcium Sherry Magnesium Total Bilirubin AST ALT Alkaline Phosphatase Total Creatine Kinase Troponin I High Sens Total Protein Albumin Globulin Albumin/Globulin Ratio Lipase Urine Color Urine Appearance Urine pH Ur Specific [place] Urine Protein Urine Glucose (UA) Urine Ketones Urine Blood Urine Nitrite Urine Bilirubin Urine Urobilinogen Ur Leukocyte Esterase Urine WBC (Auto) Urine RBC (Auto) U Hyaline Cast (Auto) U Epithel Cells (Auto) Urine Bacteria (Auto) Urine Mucus Adenovirus (PCR) B. pertussis DNA (PCR) B.parapertussis DNA PCR C. pneumoniae DNA (PCR) Coronavirus OC43 (PCR) Coronavirus HKU1 (PCR) Coronavirus 229E (PCR) SARS-CoV-2 (PCR) Coronavirus NL63 (PCR) Human Metapneumovir PCR Influenza Type A (PCR) Influenza Type B (PCR) M. pneumoniae (PCR) Parainfluenza 1 (PCR) Parainfluenza 2 (PCR) Parainfluenza 3 (PCR) Parainfluenza 4 (PCR) RSV (PCR) Entero/Rhino (PCR) 01/17/24 01/17/24 01/17/24 04:22 04:22 04:22 WBC RBC Hgb POC Hgb Hct POC Hct MCV MCH MCHC RDW Std Deviation RDW Coeff of Fuad Plt Count MPV Immature Gran % (Auto) Neut % (Auto) Lymph % (Auto) [place] % (Auto) Eos % (Auto) Baso % (Auto) Neut # (Auto) Lymph # (Auto) [place] # (Auto) Eos # (Auto) Baso # (Auto) Immature Gran # (Auto) Echinocytes PT INR POC Sodium Sodium POC Potassium Potassium 3.0 L POC Chloride Chloride 95 L 96 L Carbon Dioxide 13 L 12 L POC Total CO2 Anion Gap 22 H POC Anion Gap POC BUN BUN Creatinine POC Creatinine Est Cr Clr Drug Dosing eGFR BUN/Creatinine Ratio Glucose POC Glucose (other) Calcium POC Ioniz Calcium Sherry Magnesium Total Bilirubin AST ALT Alkaline Phosphatase Total Creatine Kinase Troponin I High Sens Total Protein Albumin Globulin Albumin/Globulin Ratio Lipase Urine Color Urine Appearance Urine pH Ur Specific [place] Urine Protein Urine Glucose (UA) Urine Ketones Urine Blood Urine Nitrite Urine Bilirubin Urine Urobilinogen Ur Leukocyte Esterase Urine WBC (Auto) Urine RBC (Auto) U Hyaline Cast (Auto) U Epithel Cells (Auto) Urine Bacteria (Auto) Urine Mucus Adenovirus (PCR) B. pertussis DNA (PCR) B.parapertussis DNA PCR C. pneumoniae DNA (PCR) Coronavirus OC43 (PCR) Coronavirus HKU1 (PCR) Coronavirus 229E (PCR) SARS-CoV-2 (PCR) Coronavirus NL63 (PCR) Human Metapneumovir PCR Influenza Type A (PCR) Influenza Type B (PCR) M. pneumoniae (PCR) Parainfluenza 1 (PCR) Parainfluenza 2 (PCR) Parainfluenza 3 (PCR) Parainfluenza 4 (PCR) RSV (PCR) Entero/Rhino (PCR) 01/17/24 01/17/24 01/17/24 04:22 04:22 04:22 WBC RBC Hgb POC Hgb Hct POC Hct MCV MCH MCHC RDW Std Deviation RDW Coeff of Fuad Plt Count MPV Immature Gran % (Auto) Neut % (Auto) Lymph % (Auto) [place] % (Auto) Eos % (Auto) Baso % (Auto) Neut # (Auto) Lymph # (Auto) [place] # (Auto) Eos # (Auto) Baso # (Auto) Immature Gran # (Auto) Echinocytes PT INR POC Sodium Sodium POC Potassium Potassium POC Chloride Chloride Carbon Dioxide POC Total CO2 Anion Gap 22 H POC Anion Gap POC BUN BUN 73 H 70 H Creatinine 18.52 H* 17.90 H* D POC Creatinine Est Cr Clr Drug Dosing 4.5 eGFR BUN/Creatinine Ratio Glucose POC Glucose (other) Calcium POC Ioniz Calcium Sherry Magnesium Total Bilirubin AST ALT Alkaline Phosphatase Total Creatine Kinase Troponin I High Sens Total Protein Albumin Globulin Albumin/Globulin Ratio Lipase Urine Color Urine Appearance Urine pH Ur Specific [place] Urine Protein Urine Glucose (UA) Urine Ketones Urine Blood Urine Nitrite Urine Bilirubin Urine Urobilinogen Ur Leukocyte Esterase Urine WBC (Auto) Urine RBC (Auto) U Hyaline Cast (Auto) U Epithel Cells (Auto) Urine Bacteria (Auto) Urine Mucus Adenovirus (PCR) B. pertussis DNA (PCR) B.parapertussis DNA PCR C. pneumoniae DNA (PCR) Coronavirus OC43 (PCR) Coronavirus HKU1 (PCR) Coronavirus 229E (PCR) SARS-CoV-2 (PCR) Coronavirus NL63 (PCR) Human Metapneumovir PCR Influenza Type A (PCR) Influenza Type B (PCR) M. pneumoniae (PCR) Parainfluenza 1 (PCR) Parainfluenza 2 (PCR) Parainfluenza 3 (PCR) Parainfluenza 4 (PCR) RSV (PCR) Entero/Rhino (PCR) 01/17/24 01/17/24 01/17/24 04:22 04:22 04:22 WBC RBC Hgb POC Hgb Hct POC Hct MCV MCH MCHC RDW Std Deviation RDW Coeff of Fuad Plt Count MPV Immature Gran % (Auto) Neut % (Auto) Lymph % (Auto) [place] % (Auto) Eos % (Auto) Baso % (Auto) Neut # (Auto) Lymph # (Auto) [place] # (Auto) Eos # (Auto) Baso # (Auto) Immature Gran # (Auto) Echinocytes PT INR POC Sodium Sodium POC Potassium Potassium POC Chloride Chloride Carbon Dioxide POC Total CO2 Anion Gap POC Anion Gap POC BUN BUN Creatinine POC Creatinine Est Cr Clr Drug Dosing 4.6 eGFR 2.55 2.65 BUN/Creatinine Ratio 3.9 L 3.9 L Glucose 112 H POC Glucose (other) Calcium POC Ioniz Calcium Sherry Magnesium Total Bilirubin AST ALT Alkaline Phosphatase Total Creatine Kinase Troponin I High Sens Total Protein Albumin Globulin Albumin/Globulin Ratio Lipase Urine Color Urine Appearance Urine pH Ur Specific [place] Urine Protein Urine Glucose (UA) Urine Ketones Urine Blood Urine Nitrite Urine Bilirubin Urine Urobilinogen Ur Leukocyte Esterase Urine WBC (Auto) Urine RBC (Auto) U Hyaline Cast (Auto) U Epithel Cells (Auto) Urine Bacteria (Auto) Urine Mucus Adenovirus (PCR) B. pertussis DNA (PCR) B.parapertussis DNA PCR C. pneumoniae DNA (PCR) Coronavirus OC43 (PCR) Coronavirus HKU1 (PCR) Coronavirus 229E (PCR) SARS-CoV-2 (PCR) Coronavirus NL63 (PCR) Human Metapneumovir PCR Influenza Type A (PCR) Influenza Type B (PCR) M. pneumoniae (PCR) Parainfluenza 1 (PCR) Parainfluenza 2 (PCR) Parainfluenza 3 (PCR) Parainfluenza 4 (PCR) RSV (PCR) Entero/Rhino (PCR) 01/17/24 01/17/24 01/17/24 04:22 04:22 08:43 WBC RBC Hgb POC Hgb Hct POC Hct MCV MCH MCHC RDW Std Deviation RDW Coeff of Fuad Plt Count MPV Immature Gran % (Auto) Neut % (Auto) Lymph % (Auto) [place] % (Auto) Eos % (Auto) Baso % (Auto) Neut # (Auto) Lymph # (Auto) [place] # (Auto) Eos # (Auto) Baso # (Auto) Immature Gran # (Auto) Echinocytes PT INR POC Sodium Sodium POC Potassium Potassium POC Chloride Chloride Carbon Dioxide POC Total CO2 Anion Gap POC Anion Gap POC BUN BUN Creatinine POC Creatinine Est Cr Clr Drug Dosing eGFR BUN/Creatinine Ratio Glucose 111 H POC Glucose (other) Calcium 6.8 L 6.7 L POC Ioniz Calcium Sherry Magnesium 1.5 L Total Bilirubin 0.4 AST 5 L ALT 8 Alkaline Phosphatase 52 Total Creatine Kinase Troponin I High Sens Total Protein 6.0 D Albumin 3.5 Globulin 2.5 Albumin/Globulin Ratio 1.4 Lipase Urine Color Yellow Urine Appearance Cloudy A Urine pH 5.0 Ur Specific [place] 1.018 Urine Protein 1+ H Urine Glucose (UA) Negative Urine Ketones Trace H Urine Blood Negative Urine Nitrite Negative Urine Bilirubin Negative Urine Urobilinogen Negative Ur Leukocyte Esterase Trace H Urine WBC (Auto) 11-20 H Urine RBC (Auto) 6-10 H U Hyaline Cast (Auto) >20 H U Epithel Cells (Auto) 6-10 H Urine Bacteria (Auto) None Seen Urine Mucus Present A Adenovirus (PCR) B. pertussis DNA (PCR) B.parapertussis DNA PCR C. pneumoniae DNA (PCR) Coronavirus OC43 (PCR) Coronavirus HKU1 (PCR) Coronavirus 229E (PCR) SARS-CoV-2 (PCR) Coronavirus NL63 (PCR) Human Metapneumovir PCR Influenza Type A (PCR) Influenza Type B (PCR) M. pneumoniae (PCR) Parainfluenza 1 (PCR) Parainfluenza 2 (PCR) Parainfluenza 3 (PCR) Parainfluenza 4 (PCR) RSV (PCR) Entero/Rhino (PCR) Diagnostic Findings CT Abdomen and Pelvis Without Intravenous Contrast COMPARISON: No relevant prior studies available. FINDINGS: Limitations: None. Lung bases: No abnormality noted. Pleural space: No visualized pleural effusion or pneumothorax. Heart: No abnormality noted. Mediastinum: No abnormality noted. ABDOMEN: Liver: Mild lobular appearance of the liver. No ductal dilatation. No visible mass. Gallbladder and bile ducts: Small gallstones noted. No ductal dilatation or stone. Pancreas: No pancreatic mass, calcification, inflammation or ductal dilation noted. Spleen: The spleen is enlarged measuring 13.5 cm long. Adrenals: No significant abnormality noted. Kidneys and ureters: No abnormality noted. No stones. No hydronephrosis. No significant perinephric fluid. Stomach and bowel: No distension or mucosal thickening. No inflammation noted. PELVIS: Appendix: Well seen and appears normal. Bladder: Incompletely distended and not optimally assessed. No gas or stone. Reproductive: No abnormalities noted. ABDOMEN and PELVIS: Intraperitoneal space: No free air. No significant fluid collection. Bones/joints: Degenerative changes noted throughout the spine. No acute osseous abnormality seen. Soft tissues: Bilateral inguinal hernias. Vasculature: Mild atherosclerosis scattered throughout the aorta. No aneurysm. Lymph nodes: No pathologically enlarged lymph nodes. IMPRESSION: 1. No hydronephrosis or kidney stone. The bladder is collapsed and not optimally assessed. No gross abnormality. 2. Nodular appearance of the liver typical of cirrhosis. Correlate clinically. 3. The spleen is enlarged measuring 13.5 cm long. 4. Cholelithiasis. PG Care Time/CCT Total # of Minutes Spent Total Time Spent with Patient: Total time spent is greater than 50% in coordination of care (as documented) at patient's floor/unit and/or counseling patient: Coding Level of Care Code 35385 IN/OBS CONSULT LVL 4,60M Diagnoses Acute renal failure (ARF) N17.9 Acute renal failure type: unspecified Metabolic acidosis E87.20 COVID-19 U07.1 Liver cirrhosis K74.60 Gastroenteritis due to COVID-19 virus U07.1; A08.39 (1) Acute renal failure (ARF) Acute renal failure type: unspecified Qualified Code(s): N17.9 - Acute kidney failure, unspecified
[2024-01-17] MEDS: ADVANCED PROBIOTIC 625 MG CAPSULE PO SCH (09:50)
[2024-01-17] MEDS: LOPERAMIDE HCL 2 MG CAP PO PRN (09:51)
[2024-01-17] MEDS: POTASSIUM CHLORIDE CRTAB 20 MEQ TABCR PO STA ×2 (09:53→16:34)
[2024-01-17] MEDS: SODIUM CHLORIDE 1 GM TABLET PO SCH (10:42)
[2024-01-17 11:15] LABS: BUN Creatinine Ratio 4.3 (10-20); Calcium 6.6 mg/dl (8.6-10.3)
--- NOTE | 2024-01-17 11:44 | Electrocardiogram Report ---
Test Reason : Blood Pressure : */* mmHG Vent. Rate : 55 BPM Atrial Rate : 55 BPM P-R Int : 182 ms QRS Dur : 104 ms QT Int : 474 ms P-R-T Axes : 33 27 29 degrees QTcB Int : 453 ms Sinus bradycardia Anterior infarct , age undetermined Abnormal ECG When compared with ECG of 24-Nov-2021 10:58, Nonspecific T wave abnormality has replaced inverted T waves in Inferior leads T wave inversion now evident in Anterior leads Confirmed by Mark Orourke ([id number]) on 01/17/2024 11:44:04 AM Referred By: REFERRED SELF Confirmed By: Mark Orourke
[2024-01-17 12:43] LABS: Adenovirus F 40/41 PCR Not Detected (NotDetected); Astrovirus PCR Not Detected (NotDetected); Campylobacter PCR Not Detected (NotDetected); Cryptosporidium PCR Not Detected (NotDetected); Cyclospora cayetanensis PCR Not Detected (NotDetected); Entamoeba histolytica PCR Not Detected (NotDetected); Enteroaggregative E.coli(EAEC) Not Detected (NotDetected); Enteropathogenic E.coli (EPEC) Not Detected (NotDetected); Enterotoxigenic E.coli (ETEC) Not Detected (NotDetected); Giardia lamblia PCR Not Detected (NotDetected); Norovirus GI/GII PCR Not Detected (NotDetected); Plesiomonas shigelloides PCR Not Detected (NotDetected); Rotavirus A PCR Not Detected (NotDetected); Salmonella PCR Not Detected (NotDetected); Sapovirus PCR Not Detected (NotDetected); Shiga-like Toxin E.coli (STEC) Not Detected (NotDetected); Shigella/Enteroinvasive E.coli Not Detected (NotDetected); Vibrio cholerae PCR Not Detected (NotDetected); Vibrio species PCR Not Detected (NotDetected); Yersinia enterocolitica PCR Not Detected (NotDetected)
--- NOTE | 2024-01-17 14:33 | Hospitalist Progress Note ---
Date of Service January 17, 2024 Assessment & Plan (1) Acute renal failure (ARF): Plan: 63-year-old man admitted with acute gastroenteritis related to COVID-19, acute kidney injury oliguric [facility], remains volume depleted may be prerenal, urine sediment is active however so glomerulonephritis is possible. 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 Upton today - continue sodium bicarbonate drip, control diarrhea - treadle cut off saw operator sent following serological labs: ESR, complement panel, DAWN, ANCA, anti-GBM - monitor urine output, does not currently have Boswell but is consistently using the urinal - hypovolemic hyponatremia improving with IV fluids and oral sodium tablets - HAGMA improving with bicarbonate drip - monitor serial BMP compared to earlier this morning sodium has improved from 1 30-1 33, CO2 has improved, creatinine improved from 18-16's (2) Gastroenteritis due to COVID-19 virus: Plan: has had diarrhea for 10 days which is on the unusual side for COVID ordered stool [employer] panel which is negative he reports no antibiotics in at least the past 6 months, C. difficile unlikely supportive careIV fluids, Imodium as needed (3) Hypertension: Plan: amlodipine and lisinopril held for relative hypotension and [facility] (4) Liver cirrhosis: Plan: history of alcohol use disorder, features of cirrhosis evident on CT abdomen including cirrhotic appearing liver and splenomegaly - INR 1.1, bilirubin normal, AST/ALT/alk phos normal Plan anemia - hemoglobin 12 after IV fluids hypocalcemiamonitor since asymptomatic replace hypomagnesemia with 2 g IV magnesium DVT prophylaxissubcu heparin 3 times daily Admission and Anticipated Discharge Date Admission Date: January 16, 2024 Subjective no respiratory symptoms such as cough, dyspnea, sore throat no sick contacts continues to have diarrhea without abdominal pain was vaccinated for COVID, no booster this year 100 mL of urine this AM Physical Exam 2 Physical Exam: PHYSICAL EXAMINATION Last 24h vital signs reviewed, see documentation in flowsheet General: comfortable appearing, no distress HEENT: Normocephalic, atraumatic, pupils round and equal, sclerae anicteric, no conjunctival injection, moist mucus membranes Lungs: Normal respiratory effort. Clear to auscultation bilaterally. No RRW Heart: Regular rate and rhythm, no murmurs. No JVD Abdomen: Soft, nontender, nondistended. Bowel sounds present. Extremities: Warm, dry, well-perfused. No extremity edema. Neuro: Alert and oriented x 4, face symmetric, moves 4 extremities well Psych: Normal affect and behavior Results & Data Results & Data Vital Signs (Past 12 Hours) Vital Signs Temp Pulse Pulse Resp BP Pulse Ox O2 Del Method 01/17/24 13:59 64 01/17/24 10:51 96.8 F L 65 18 130/65 98 Room Air 01/17/24 09:35 Room Air 01/17/24 08:29 97.3 F L 57 L 18 107/63 97 Room Air 01/17/24 07:26 55 L 01/17/24 03:27 97.5 F L 60 18 97/56 L 98 Room Air 01/17/24 03:17 91 H Laboratory Results 01/17/24 04:22 01/17/24 10:11 PG Care Time/CCT Total # of Minutes Spent Total Time Spent with Patient: Total time spent is greater than 50% in coordination of care (as documented) at patient's floor/unit and/or counseling patient: Coding Level of Care Code 57671 SUB INP/OBS CARE 3/50MIN Diagnoses Acute renal failure (ARF) N17.9 Acute renal failure type: unspecified Gastroenteritis due to COVID-19 virus U07.1; A08.39 Hypertension I10 Liver cirrhosis K74.60 (1) Acute renal failure (ARF) Acute renal failure type: unspecified Qualified Code(s): N17.9 - Acute kidney failure, unspecified
[2024-01-17] MEDS: MAGNESIUM SULFATE / D5W 1 GM/100 ML BAG IV SCH (14:49)
[2024-01-17 15:36] LABS: Albumin Level 3.5 gm/dl (3.4-5.0); BUN Creatinine Ratio 4.4 (10-20); Calcium 6.4 mg/dl (8.6-10.3); Calcium 6.5 mg/dl (8.6-10.3); Creatinine Clr Calc Pharmacy 4.8 ml/min; Creatinine Clr Calc Pharmacy 5.3 ml/min; Phosphorus 8.3 mg/dl (2.5-4.9); Potassium 3.1 mmol/L (3.5-5.1)
[2024-01-17 19:11] LABS: BUN Creatinine Ratio 4.1 (10-20); Calcium 6.6 mg/dl (8.6-10.3); Creatinine Clr Calc Pharmacy 4.9 ml/min; Potassium 3.1 mmol/L (3.5-5.1)
[2024-01-17] MEDS: INFLUENZA VACC TS2024-25(6m+)/PF (IIV3) 0.5mL Syr IM ONE (22:09)
[2024-01-17 23:41] LABS: BUN Creatinine Ratio 4.1 (10-20); Calcium 6.2 mg/dl (8.6-10.3); Potassium 2.8 mmol/L (3.5-5.1)
[2024-01-18] MEDS: POTASSIUM CHLORIDE CRTAB 20 MEQ TABCR PO STA ×3 (00:09→17:45)
[2024-01-18 04:49] LABS: Albumin Globulin Ratio 1.3 (0.9-2); BUN Creatinine Ratio 4.1 (10-20); Bilirubin,Total 0.4 mg/dl (0.2-1.0); Calcium 6.3 mg/dl (8.6-10.3); Globulin 2.4 gm/dl (2.5-4.0); Magnesium 1.5 mg/dl (1.7-2.4); Potassium 3.2 mmol/L (3.5-5.1); Total Protein 5.4 gm/dl (6.0-8.3)
[2024-01-18 05:39] LABS: ALC (manual) 1.44 K/uL (1.2-3.4); ANC (manual) 4.26 K/uL (1.4-6.5); Basophils # (manual) 0.06 K/uL (0-0.2); Basophils % (manual) 1 %; Echinocytes 1+; Eosinophils # (manual) 0.06 K/uL (0-0.50); Eosinophils % (manual) 1 %; Hemoglobin 11.5 g/dl (14.0-18.0); Lymphocytes # (manual) 1.44 K/uL (1.2-3.4); Lymphocytes % (manual) 24 %; Mean Corpuscular Hemoglobin 31.9 pg (25.0-34.0); Mean Corpuscular Hgb Conc 37.1 g/dL (32.0-36.0); Mean Corpuscular Volume 86.1 fL (80.0-100.0); Mean Platelet Volume 10.6 fL (9.4-12.4); Monocytes # (manual) 0.18 K/uL (0.11-0.59); Monocytes % (manual) 3 %; Neutrophils # (manual) 4.26 K/uL (1.40-6.50); Neutrophils % (manual) 71 %; Platelet Count 210 K/uL (130-400); Polychromasia 1+; RDW Coefficient of Variation 12.1 % (11.5-14.5); RDW Standard Deviation 38.5 fL (36.4-46.3)
--- NOTE | 2024-01-18 08:16 | Hospitalist Progress Note ---
Date of Service January 18, 2024 Assessment & Plan (1) Acute renal failure (ARF): Plan: 63-year-old man admitted with acute gastroenteritis related to COVID-19, acute kidney injury oliguric [facility], remains volume depleted may be prerenal, urine sediment is active however so glomerulonephritis is possible. no evidence of obstruction on CT abdomen and pelvis senior mobile developer consulting - 1 liter plasmalyte ordered per nephrology today for mild volume depletion, control diarrhea - senior mobile developer sent following serological labs: ESR, complement panel, DAWN, ANCA, anti-GBM - all pending - remains oliguric - hyponatremia persists Na 127 - cont oral sodium tablets - HAGMA persists - Cr improved from 18s --> 16s but unchanged since yesterday - replace hypokalemia K 3.2 with 20 meq po, replace mild hypomagnesemia 1.5 with 1g IV - continue monitoring serial BMP and UOP 4pm BMP reviewed - NA 123, K 3.2, BUN 68, Cr 15 -oral sodium chloride increased to 2g bid this afternoon, also on sodium bicarb 1300 mg bid -will check BMP tonight because of worsening hyponatremia (2) Gastroenteritis due to COVID-19 virus: Plan: has had diarrhea for 10 days which is on the unusual side for COVID ordered stool BioFire panel which is negative he reports no antibiotics in at least the past 6 months, C. difficile unlikely supportive careIV fluids, Imodium as needed -3 stools yesterday, none recorded overnight, one this am -improved (3) Hypertension: Plan: amlodipine and lisinopril held for relative hypotension and MERCY -BP has improved currently normotensive (4) Liver cirrhosis: Plan: history of alcohol use disorder, features of cirrhosis evident on CT abdomen including cirrhotic appearing liver and splenomegaly - INR 1.1, bilirubin normal, AST/ALT/alk phos normal Plan anemia - hemoglobin 12 after IV fluids, stable at 11.5 hypocalcemiamonitor since asymptomatic. albumin 3.0 DVT prophylaxissubcu heparin 3 times daily Admission and Anticipated Discharge Date Admission Date: January 16, 2024 Subjective Feels pretty well, 3 stools yesterday and only 1 so far this AM No abdominal pain No dyspnea, no edema Physical Exam 2 Physical Exam: PHYSICAL EXAMINATION Last 24h vital signs reviewed, see documentation in flowsheet General: comfortable appearing, no distress, alert sitting in bed exam unchanged 01/17 HEENT: Normocephalic, atraumatic, pupils round and equal, sclerae anicteric, no conjunctival injection, moist mucus membranes Lungs: Normal respiratory effort. Clear to auscultation bilaterally. No RRW Heart: Regular rate and rhythm, no murmurs. No JVD Abdomen: Soft, nontender, nondistended. Bowel sounds present. Extremities: Warm, dry, well-perfused. No extremity edema. Neuro: Alert and oriented x 4, face symmetric, moves 4 extremities well Psych: Normal affect and behavior Results & Data Results & Data Vital Signs (Past 12 Hours) Vital Signs Temp Pulse Pulse Resp BP Pulse Ox O2 Del Method 01/18/24 02:34 98.1 F 63 18 119/67 95 Room Air 01/17/24 23:11 97.9 F 64 18 119/53 L 97 Room Air 01/17/24 21:55 63 Laboratory Results 01/18/24 04:02 01/18/24 04:02 PG Care Time/CCT Total # of Minutes Spent Total Time Spent with Patient: Total time spent is greater than 50% in coordination of care (as documented) at patient's floor/unit and/or counseling patient: Coding Level of Care Code 81829 SUB INP/OBS CARE 3/50MIN Diagnoses Acute renal failure (ARF) N17.9 Acute renal failure type: unspecified Gastroenteritis due to COVID-19 virus U07.1; A08.39 Hypertension I10 Liver cirrhosis K74.60 (1) Acute renal failure (ARF) Acute renal failure type: unspecified Qualified Code(s): N17.9 - Acute kidney failure, unspecified
[2024-01-18] MEDS: MAGNESIUM SULFATE / D5W 1 GM/100 ML BAG IV ONE (08:26)
--- NOTE | 2024-01-18 10:43 | Nephrology Progress Note ---
Date of Service January 18, 2024 Assessment & Plan (1) Acute renal failure (ARF): Plan: Urine output slightly increased. Creatinine slightly improved. Remains slightly volume depleted. Additional 1 L of plasmalyte order to infuse today @ 125 ml/hr. PO intake reasonable and diarrhea appears to be improving. Electrolytes acceptable (hyponatremia, hypokalemia, and metabolic acidosis). Oral NaCl + NaHCO3 provided. Potassium and magnesium supplementation also provided. Denies uremic symptoms. There is no emergent indication for dialysis at this time. Close monitoring of electrolytes with repeat BMP at 4PM requested. CT demonstrating decompressed bladder. No evidence of obstruction. Kidneys are otherwise normal. Did not tolerate Boswell catheter placement but denies any LUTS. Bladder scan did not demonstrate significant PVR. Urine +WBC, +RBC, +protein. GN is not excluded but presentation is atypical. Certainly no evidence of RPGN. Serologic evaluation pending. ESR 12. Repeat urine studies have been requested today. Continue IVF to encourage positive fluid balance. Document strict I/O's. Medications are appropriate for kidney function. (2) Metabolic acidosis: Plan: Attributed to GI losses and acute kidney injury. Oral [id number] has been ordered. (3) Hyponatremia: Plan: Chronic. Asymptomatic. Mild to moderate. Volume/solute depleted. IVF + oral sodium replacement ordered. Close monitoring with repeat labs this afternoon. Urine electrolytes requested. (4) COVID-19: (5) Liver cirrhosis: (6) Gastroenteritis due to COVID-19 virus: Admission and Anticipated Discharge Date Admission Date: January 16, 2024 Subjective No acute events overnight. He continues to report loose bowel movements but less frequent (3 yesterday). No melena or hematochezia. No abdominal pain. No fevers or chills. Appetite is good. No vomiting or nausea. Wade reports feeling well overall. Urine output has improved slightly. Wade denies any urinary complaints. No chest pains or palpitations. No shortness of breath or orthopnea. Review of Systems Review of Systems: All systems reviewed & are unremarkable except as noted in HPI & below Physical Exam Constitutional: well developed; no acute distress Eyes: + anicteric sclerae; no conjunctival abn ormality ENMT: Mouth: + dry oral mucous membranes (slightly); no oral mucosal abnormal ity Neck: normal visual inspection and trachea midline Respiratory: normal respiratory effort Auscultation: lungs clear to auscultation bilaterally Cardiovascular: Rate/Rhythm: regular rate Heart Sounds: normal S1 and normal S2 Vessels: no JVD Extremities: no edema Musculoskeletal: Extremities: no cyanosis and no clubbing Skin: normal turgor; no lesions Neurologic: Motor/Sensory: no tremor and no asterixis Psychiatric: Orientation: alert and oriented x 3 Results & Data Vital Signs (Past 12 Hours) Vital Signs Temp Pulse Pulse Pulse Resp BP Pulse Ox 01/18/24 10:34 36.4 C L 58 L 16 121/63 98 01/18/24 08:23 36.5 C 60 16 115/63 98 01/18/24 08:15 60 01/18/24 02:34 36.7 C 63 18 119/67 95 01/17/24 23:11 36.6 C 64 18 119/53 L 97 O2 Del Method 01/18/24 10:34 Room Air 01/18/24 08:23 Room Air 01/18/24 08:15 01/18/24 02:34 Room Air 01/17/24 23:11 Room Air Laboratory Results Laboratory Results - last 24 hr 01/17/24 01/17/24 01/17/24 10:11 11:23 15:05 WBC RBC Hgb Hct MCV MCH MCHC RDW Std Deviation RDW Coeff of Fuad Plt Count MPV Neutrophils % (Manual) Lymphocytes % (Manual) Monocytes % (Manual) Eosinophils % (Manual) Basophils % (Manual) Neutrophils # (Manual) Total Absolute Neuts Lymphocytes # (Manual) Total Abs Lymphocytes Monocytes # (Manual) Eosinophils # (Manual) Basophils # (Manual) Polychromasia Echinocytes ESR Sodium 133 L 128 L Potassium 3.0 L Chloride 95 L Carbon Dioxide 15 L Anion Gap 23 H BUN 71 H Creatinine 16.64 H* D Est Cr Clr Drug Dosing 5.0 eGFR 2.90 BUN/Creatinine Ratio 4.3 L Glucose 116 H Calcium 6.6 L Phosphorus Magnesium Total Bilirubin AST ALT Alkaline Phosphatase Total Protein Albumin Globulin Albumin/Globulin Ratio Stl C. cayetanensis PCR Not Detected Stool Rotavirus A PCR Not Detected Stl Adenov F 40/41 PCR Not Detected Stool Astrovirus (PCR) Not Detected Stool Campylobacter PCR Not Detected Stool Cryptosporidium PCR Not Detected Stl E.coli Shiga Tox PCR Not Detected Stl Enterotoxigenic E PCR Not Detected Stool EPEC (PCR) Not Detected Stool EAEC (PCR) Not Detected Stl E. histolytica PCR Not Detected Stool Giardia Lamblia PCR Not Detected Stool Salmonella PCR Not Detected Stool Sapovirus (PCR) Not Detected Stl P. shigelloides PCR Not Detected Stl Shigella/EIEC PCR Not Detected St Y.enterocolitica PCR Not Detected Stool Vibrio (PCR) Not Detected Stl Vibrio cholerae PCR Not Detected Stl Norovirus GI/GII PCR Not Detected DAWN Screen Anti-Proteinase 3 Anti-Myeloperoxidase ANCA Glomerular Base Memb Ab Complement C3 Complement C4 Tot Complement (CH50) 01/17/24 01/17/24 01/17/24 15:05 15:05 15:05 WBC RBC Hgb Hct MCV MCH MCHC RDW Std Deviation RDW Coeff of Fuad Plt Count MPV Neutrophils % (Manual) Lymphocytes % (Manual) Monocytes % (Manual) Eosinophils % (Manual) Basophils % (Manual) Neutrophils # (Manual) Total Absolute Neuts Lymphocytes # (Manual) Total Abs Lymphocytes Monocytes # (Manual) Eosinophils # (Manual) Basophils # (Manual) Polychromasia Echinocytes ESR Sodium 127 L Potassium 3.1 L 3.0 L Chloride 92 L 90 L Carbon Dioxide 15 L Anion Gap BUN Creatinine Est Cr Clr Drug Dosing eGFR BUN/Creatinine Ratio Glucose Calcium Phosphorus Magnesium Total Bilirubin AST ALT Alkaline Phosphatase Total Protein Albumin Globulin Albumin/Globulin Ratio Stl C. cayetanensis PCR Stool Rotavirus A PCR Stl Adenov F 40/41 PCR Stool Astrovirus (PCR) Stool Campylobacter PCR Stool Cryptosporidium PCR Stl E.coli Shiga Tox PCR Stl Enterotoxigenic E PCR Stool EPEC (PCR) Stool EAEC (PCR) Stl E. histolytica PCR Stool Giardia Lamblia PCR Stool Salmonella PCR Stool Sapovirus (PCR) Stl P. shigelloides PCR Stl Shigella/EIEC PCR St Y.enterocolitica PCR Stool Vibrio (PCR) Stl Vibrio cholerae PCR Stl Norovirus GI/GII PCR DAWN Screen Anti-Proteinase 3 Anti-Myeloperoxidase ANCA Glomerular Base Memb Ab Complement C3 Complement C4 Tot Complement (CH50) 01/17/24 01/17/24 01/17/24 15:05 15:05 15:05 WBC RBC Hgb Hct MCV MCH MCHC RDW Std Deviation RDW Coeff of Fuad Plt Count MPV Neutrophils % (Manual) Lymphocytes % (Manual) Monocytes % (Manual) Eosinophils % (Manual) Basophils % (Manual) Neutrophils # (Manual) Total Absolute Neuts Lymphocytes # (Manual) Total Abs Lymphocytes Monocytes # (Manual) Eosinophils # (Manual) Basophils # (Manual) Polychromasia Echinocytes ESR Sodium Potassium Chloride Carbon Dioxide 17 L Anion Gap 21 H 20 H BUN 69 H 70 H Creatinine 15.68 H* D Est Cr Clr Drug Dosing eGFR BUN/Creatinine Ratio Glucose Calcium Phosphorus Magnesium Total Bilirubin AST ALT Alkaline Phosphatase Total Protein Albumin Globulin Albumin/Globulin Ratio Stl C. cayetanensis PCR Stool Rotavirus A PCR Stl Adenov F PCR Stool Astrovirus (PCR) Stool Campylobacter PCR Stool Cryptosporidium PCR Stl E.coli Shiga Tox PCR Stl Enterotoxigenic E PCR Stool EPEC (PCR) Stool EAEC (PCR) Stl E. histolytica PCR Stool Giardia Lamblia PCR Stool Salmonella PCR Stool Sapovirus (PCR) Stl P. shigelloides PCR Stl Shigella/EIEC PCR St Y.enterocolitica PCR Stool Vibrio (PCR) Stl Vibrio cholerae PCR Stl Norovirus GI/GII PCR DAWN Screen Anti-Proteinase 3 Anti-Myeloperoxidase ANCA Glomerular Base Memb Ab Complement C3 Complement C4 Tot Complement (CH50) 01/17/24 01/17/24 01/17/24 15:05 15:05 15:05 WBC RBC Hgb Hct MCV MCH MCHC RDW Std Deviation RDW Coeff of Fuad Plt Count MPV Neutrophils % (Manual) Lymphocytes % (Manual) Monocytes % (Manual) Eosinophils % (Manual) Basophils % (Manual) Neutrophils # (Manual) Total Absolute Neuts Lymphocytes # (Manual) Total Abs Lymphocytes Monocytes # (Manual) Eosinophils # (Manual) Basophils # (Manual) Polychromasia Echinocytes ESR Sodium Potassium Chloride Carbon Dioxide Anion Gap BUN Creatinine 17.35 H* D Est Cr Clr Drug Dosing 5.3 4.8 eGFR 3.11 2.75 BUN/Creatinine Ratio 4.4 L Glucose Calcium Phosphorus Magnesium Total Bilirubin AST ALT Alkaline Phosphatase Total Protein Albumin Globulin Albumin/Globulin Ratio Stl C. cayetanensis PCR Stool Rotavirus A PCR Stl Adenov F PCR Stool Astrovirus (PCR) Stool Campylobacter PCR Stool Cryptosporidium PCR Stl E.coli Shiga Tox PCR Stl Enterotoxigenic E PCR Stool EPEC (PCR) Stool EAEC (PCR) Stl E. histolytica PCR Stool Giardia Lamblia PCR Stool Salmonella PCR Stool Sapovirus (PCR) Stl P. shigelloides PCR Stl Shigella/EIEC PCR St Y.enterocolitica PCR Stool Vibrio (PCR) Stl Vibrio cholerae PCR Stl Norovirus GI/GII PCR DAWN Screen Anti-Proteinase 3 Anti-Myeloperoxidase ANCA Glomerular Base Memb Ab Complement C3 Complement C4 Tot Complement (CH50) 01/17/24 01/17/24 01/17/24 15:05 15:05 15:05 WBC RBC Hgb Hct MCV MCH MCHC RDW Std Deviation RDW Coeff of Fuad Plt Count MPV Neutrophils % (Manual) Lymphocytes % (Manual) Monocytes % (Manual) Eosinophils % (Manual) Basophils % (Manual) Neutrophils # (Manual) Total Absolute Neuts Lymphocytes # (Manual) Total Abs Lymphocytes Monocytes # (Manual) Eosinophils # (Manual) Basophils # (Manual) Polychromasia Echinocytes ESR Sodium Potassium Chloride Carbon Dioxide Anion Gap BUN Creatinine Est Cr Clr Drug Dosing eGFR BUN/Creatinine Ratio 4.0 L Glucose 108 H 110 H Calcium 6.4 L 6.5 L Phosphorus 8.3 H Magnesium Total Bilirubin AST ALT Alkaline Phosphatase Total Protein Albumin 3.5 Globulin Albumin/Globulin Ratio Stl C. cayetanensis PCR Stool Rotavirus A PCR Stl Adenov F 40/41 PCR Stool Astrovirus (PCR) Stool Campylobacter PCR Stool Cryptosporidium PCR Stl E.coli Shiga Tox PCR Stl Enterotoxigenic E PCR Stool EPEC (PCR) Stool EAEC (PCR) Stl E. histolytica PCR Stool Giardia Lamblia PCR Stool Salmonella PCR Stool Sapovirus (PCR) Stl P. shigelloides PCR Stl Shigella/EIEC PCR St Y.enterocolitica PCR Stool Vibrio (PCR) Stl Vibrio cholerae PCR Stl Norovirus GI/GII PCR DAWN Screen Anti-Proteinase 3 Anti-Myeloperoxidase ANCA Glomerular Base Memb Ab Complement C3 Complement C4 Tot Complement (CH50) 01/17/24 01/17/24 01/18/24 18:35 22:31 04:02 WBC 6.00 RBC 3.60 L Hgb 11.5 L Hct 31.0 L MCV 86.1 MCH 31.9 MCHC 37.1 H RDW Std Deviation 38.5 RDW Coeff of Fuad 12.1 Plt Count 210 MPV 10.6 Neutrophils % (Manual) 71 Lymphocytes % (Manual) 24 Monocytes % (Manual) 3 Eosinophils % (Manual) 1 Basophils % (Manual) 1 Neutrophils # (Manual) 4.26 Total Absolute Neuts 4.26 Lymphocytes # (Manual) 1.44 Total Abs Lymphocytes 1.44 Monocytes # (Manual) 0.18 Eosinophils # (Manual) 0.06 Basophils # (Manual) 0.06 Polychromasia 1+ Echinocytes 1+ ESR 12 Sodium 127 L 127 L 127 L Potassium 3.1 L 2.8 L 3.2 L Chloride 88 L 89 L 89 L Carbon Dioxide 18 L 19 L 19 L Anion Gap 21 H 19 H 19 H BUN 70 H 68 H 68 H Creatinine 17.07 H* 16.73 H* D 16.50 H* Est Cr Clr Drug Dosing 4.9 5.0 5.0 eGFR 2.81 2.88 2.93 BUN/Creatinine Ratio 4.1 L 4.1 L 4.1 L Glucose 116 H 108 H 102 H Calcium 6.6 L 6.2 L 6.3 L Phosphorus Magnesium 1.5 L Total Bilirubin 0.4 AST 5 L ALT 8 Alkaline Phosphatase 52 Total Protein 5.4 L Albumin 3.0 L Globulin 2.4 L Albumin/Globulin Ratio 1.3 Stl C. cayetanensis PCR Stool Rotavirus A PCR Stl Adenov F 40/41 PCR Stool Astrovirus (PCR) Stool Campylobacter PCR Stool Cryptosporidium PCR Stl E.coli Shiga Tox PCR Stl Enterotoxigenic E PCR Stool EPEC (PCR) Stool EAEC (PCR) Stl E. histolytica PCR Stool Giardia Lamblia PCR Stool Salmonella PCR Stool Sapovirus (PCR) Stl P. shigelloides PCR Stl Shigella/EIEC PCR St Y.enterocolitica PCR Stool Vibrio (PCR) Stl Vibrio cholerae PCR Stl Norovirus GI/GII PCR DAWN Screen Pending Anti-Proteinase 3 Pending Anti-Myeloperoxidase Pending ANCA Pending Glomerular Base Memb Ab Pending Complement C3 Pending Complement C4 Pending Tot Complement (CH50) Pending PG Care Time/CCT Total # of Minutes Spent Total Time Spent with Patient: Total time spent is greater than 50% in coordination of care (as documented) at patient's floor/unit and/or counseling patient: Coding Level of Care Code 77475 SUB INP/OBS CARE 3/50MIN Diagnoses Acute renal failure (ARF) N17.9 Acute renal failure type: unspecified Metabolic acidosis E87.20 Hyponatremia E87.1 COVID-19 U07.1 Liver cirrhosis K74.60 Gastroenteritis due to COVID-19 virus U07.1; A08.39 (1) Acute renal failure (ARF) Acute renal failure type: unspecified Qualified Code(s): N17.9 - Acute kidney failure, unspecified
[2024-01-18] MEDS: PLASMA-LYTE A 1,000 ML IV SCH (12:17)
[2024-01-18 14:42] LABS: Appearance Urine Clear (Clear); Bacteria Urine Automated None Seen (None Seen); Bilirubin Urine Negative (Negative); Blood Urine Trace (Negative); Color Urine Yellow; Glucose Urine UA Negative (Negative); Ketones Urine Negative (Negative); Leukocyte Esterase Urine Negative (Negative); Mucus Urine Present (None Prsent); Nitrite Urine Negative (Negative); Protein Urine 1+ (Negative); RBC Urine Automated 0-2 /hpf (0-2); Specific Gravity Urine 1.011 (1.000-1.030); Urobilinogen Urine Negative (Negative); pH Urine 5.5 (4.5-7.5)
[2024-01-18] MEDS: SODIUM CHLORIDE 1 GM TABLET PO SCH (15:16)
[2024-01-18] MEDS: SODIUM BICARBONATE 650 MG TAB PO SCH (15:16)
[2024-01-18 16:54] LABS: BUN Creatinine Ratio 4.5 (10-20); Calcium 6.6 mg/dl (8.6-10.3); Creatinine Clr Calc Pharmacy 5.5 ml/min; Potassium 3.2 mmol/L (3.5-5.1)
[2024-01-18] MEDS: FAMOTIDINE 10 MG TABLET PO ONE (20:21)
[2024-01-18 21:23] LABS: BUN Creatinine Ratio 4.8 (10-20); Calcium 6.7 mg/dl (8.6-10.3); Creatinine Clr Calc Pharmacy 5.9 ml/min; Potassium 3.5 mmol/L (3.5-5.1)
[2024-01-19 05:29] LABS: BUN Creatinine Ratio 5.3 (10-20); Calcium 6.9 mg/dl (8.6-10.3); Creatinine Clr Calc Pharmacy 6.9 ml/min; Magnesium 1.5 mg/dl (1.7-2.4); Potassium 3.5 mmol/L (3.5-5.1)
--- NOTE | 2024-01-19 08:01 | Hospitalist Progress Note ---
Date of Service January 19, 2024 Assessment & Plan (1) Acute renal failure (ARF): Plan: 63-year-old man admitted with acute gastroenteritis related to COVID-19, oliguric acute kidney injury may be prerenal, urine sediment is active however so glomerulonephritis is possible. no evidence of obstruction on CT abdomen and pelvis certified dietary manager consulting - UOP sig improved at 1500 last 24h, Cr now decreasing from 16-->12.5, diarrhea resolved/resolving - certified dietary manager sent following serological labs: ESR, complement panel, DAWN, ANCA, anti-GBM - all pending - hyponatremia persists Na 123-->124 - cont oral sodium tablets - HAGMA persists - cont sodium bicarbonate po - potassium low normal - ordered 20 meq po, hypomagnesemia 1.5 persists --> 2g IV mag - continue IVF with plasmalyte - continue monitoring serial BMP and UOP - discussed with Dr. Upton (2) Gastroenteritis due to COVID-19 virus: Plan: has had diarrhea for 10 days which is on the unusual side for COVID ordered stool BioFire panel which is negative he reports no antibiotics in at least the past 6 months, C. difficile unlikely supportive careIV fluids as needed, Imodium as needed -resolved (3) Hypertension: Plan: amlodipine and lisinopril held for relative hypotension and [facility] -BP has improved currently normotensive (4) Liver cirrhosis: Plan: history of alcohol use disorder, features of cirrhosis evident on CT abdomen including cirrhotic appearing liver and splenomegaly - INR 1.1, bilirubin normal, AST/ALT/alk phos normal Plan anemia - hemoglobin 12 after IV fluids, stable at 11.5 hypocalcemiamonitor since asymptomatic. albumin 3.0 DVT prophylaxissubcu heparin 3 times daily updated his in room Admission and Anticipated Discharge Date Admission Date: January 16, 2024 Subjective had a soft stool last night UOP increased Feels well, no nausea or dyspnea Physical Exam 2 Physical Exam: PHYSICAL EXAMINATION Last 24h vital signs reviewed, see documentation in flowsheet General: comfortable appearing, no distress, alert sitting in bed exam unchanged 01/18 continues to appear well HEENT: Normocephalic, atraumatic, pupils round and equal, sclerae anicteric, no conjunctival injection, moist mucus membranes Lungs: Normal respiratory effort. Clear to auscultation bilaterally. No RRW Heart: Regular rate and rhythm, no murmurs. No JVD Abdomen: Soft, nontender, nondistended. Bowel sounds present. Extremities: Warm, dry, well-perfused. No extremity edema. Neuro: Alert and oriented x 4, face symmetric, moves 4 extremities well Psych: Normal affect and behavior Results & Data Results & Data Vital Signs (Past 12 Hours) Vital Signs Temp Pulse Pulse Resp BP Pulse Ox O2 Del Method 01/19/24 07:54 79 01/19/24 02:44 98.2 F 55 L 18 126/66 94 Room Air 01/18/24 22:53 98.1 F 60 18 112/65 96 Room Air 01/18/24 21:45 58 L Laboratory Results 01/18/24 04:02 01/19/24 04:24 mag 1.5 Kristy 41 PG Care Time/CCT Total # of Minutes Spent Total Time Spent with Patient: Total time spent is greater than 50% in coordination of care (as documented) at patient's floor/unit and/or counseling patient: Coding Level of Care Code 62573 SUB INP/OBS CARE 3/50MIN Diagnoses Acute renal failure (ARF) N17.9 Acute renal failure type: unspecified Gastroenteritis due to COVID-19 virus U07.1; A08.39 Hypertension I10 Liver cirrhosis K74.60 (1) Acute renal failure (ARF) Acute renal failure type: unspecified Qualified Code(s): N17.9 - Acute kidney failure, unspecified
[2024-01-19] MEDS: MAGNESIUM SULFATE / D5W 1 GM/100 ML BAG IV SCH (08:13)
[2024-01-19] MEDS: POTASSIUM CHLORIDE CRTAB 20 MEQ TABCR PO STA ×2 (08:13→21:40)
--- NOTE | 2024-01-19 10:37 | Nephrology Progress Note ---
Date of Service January 19, 2024 Assessment & Plan (1) Acute renal failure (ARF): Plan: Non-oliguric. 700 ml overnight. Creatinine trending down. Continue IVF to encourage urine output. Electrolytes acceptable (hyponatremia, hypokalemia, and metabolic acidosis). Denies uremic symptoms. There is no emergent indication for dialysis at this time. Additional 2 L of plasmalyte ordered to infuse at 150 ml/hr. Potassium and magnesium supplementation provided. Close monitoring of electrolytes with repeat BMP at 5PM requested. Serologic evaluation pending. Continue IVF to encourage positive fluid balance. Document strict I/O's. Medications are appropriate for kidney function. (2) Metabolic acidosis: Plan: Attributed to GI losses and acute kidney injury. Continue oral NaHCO3 as Rx. (3) Hyponatremia: Plan: Chronic. Asymptomatic. Mild to moderate. Volume/solute depleted. IVF + oral sodium replacement ordered. Close monitoring with repeat labs this afternoon. (4) COVID-19: (5) Liver cirrhosis: (6) Gastroenteritis due to COVID-19 virus: Admission and Anticipated Discharge Date Admission Date: January 16, 2024 Subjective No acute events overnight. Wade feels well this AM. Diarrhea has resolved. No fevers or chills. Denies shortness of breath. Appetite is good. He denies fluid retention or edema. No urinary symptoms. Increasing urine output. Review of Systems Review of Systems: All systems reviewed & are unremarkable except as noted in HPI & below Physical Exam Constitutional: well developed; no acute distress Eyes: + anicteric sclerae; no conjunctival abn ormality ENMT: Mouth: no oral mucosal abnormality and oral mucous membranes not dry Neck: normal visual inspection and trachea midline Respiratory: normal respiratory effort Auscultation: lungs clear to auscultation bilaterally Cardiovascular: Rate/Rhythm: regular rate Heart Sounds: normal S1 and normal S2 Extremities: no edema Musculoskeletal: Extremities: no cyanosis and no clubbing Skin: normal turgor; no lesions Neurologic: Motor/Sensory: no tremor and no asterixis Psychiatric: Orientation: alert and oriented x 3 Results & Data Vital Signs (Past 12 Hours) Vital Signs Temp Pulse Pulse Resp BP Pulse Ox O2 Del Method 01/19/24 08:12 36.7 C 59 L 16 139/69 99 Room Air 01/19/24 08:00 64 01/19/24 07:54 79 01/19/24 02:44 36.8 C 55 L 18 126/66 94 Room Air 01/18/24 22:53 36.7 C 60 18 112/65 96 Room Air Laboratory Results Laboratory Results - last 24 hr 01/18/24 01/18/24 01/18/24 16:02 20:43 Unknown Sodium 123 L 123 L Potassium 3.2 L 3.5 Chloride 86 L 87 L Carbon Dioxide 18 L 18 L Anion Gap 19 H 18 H BUN 68 H 67 H Creatinine 15.13 H* D 14.04 H* D Est Cr Clr Drug Dosing 5.5 5.9 eGFR 3.25 3.55 BUN/Creatinine Ratio 4.5 L 4.8 L Glucose 108 H 101 H Calcium 6.6 L 6.7 L Magnesium Urine Color Yellow Urine Appearance Clear Urine pH 5.5 Ur Specific Ponce 1.011 Urine Protein 1+ H Urine Glucose (UA) Negative Urine Ketones Negative Urine Blood Trace H Urine Nitrite Negative Urine Bilirubin Negative Urine Urobilinogen Negative Ur Leukocyte Esterase Negative Urine WBC (Auto) 11-20 H Urine RBC (Auto) 0-2 U Hyaline Cast (Auto) 3-5 H U Epithel Cells (Auto) 6-10 H Urine Bacteria (Auto) None Seen Urine Mucus Present A Ur Random Sodium 41 Ur Random Potassium 31.9 01/19/24 04:24 Sodium 124 L Potassium 3.5 Chloride 89 L Carbon Dioxide 18 L Anion Gap 17 H BUN 67 H Creatinine 12.58 H* D Est Cr Clr Drug Dosing 6.9 eGFR 4.05 BUN/Creatinine Ratio 5.3 L Glucose 101 H Calcium 6.9 L Magnesium 1.5 L Urine Color Urine Appearance Urine pH Ur Specific Ponce Urine Protein Urine Glucose (UA) Urine Ketones Urine Blood Urine Nitrite Urine Bilirubin Urine Urobilinogen Ur Leukocyte Esterase Urine WBC (Auto) Urine RBC (Auto) U Hyaline Cast (Auto) U Epithel Cells (Auto) Urine Bacteria (Auto) Urine Mucus Ur Random Sodium Ur Random Potassium PG Care Time/CCT Total # of Minutes Spent Total Time Spent with Patient: Total time spent is greater than 50% in coordination of care (as documented) at patient's floor/unit and/or counseling patient: Coding Level of Care Code 87096 SUB INP/OBS CARE 3/50MIN Diagnoses Acute renal failure (ARF) N17.9 Acute renal failure type: unspecified Metabolic acidosis E87.20 Hyponatremia E87.1 COVID-19 U07.1 Liver cirrhosis K74.60 Gastroenteritis due to COVID-19 virus U07.1; A08.39 (1) Acute renal failure (ARF) Acute renal failure type: unspecified Qualified Code(s): N17.9 - Acute kidney failure, unspecified
[2024-01-19] MEDS: PLASMA-LYTE A 1,000 ML IV SCH (12:18)
[2024-01-19 17:15] LABS: BUN Creatinine Ratio 6.8 (10-20); Calcium 7.5 mg/dl (8.6-10.3); Creatinine Clr Calc Pharmacy 9.6 ml/min; Potassium 3.4 mmol/L (3.5-5.1)
[2024-01-19] MEDS: FAMOTIDINE 10 MG TABLET PO PRN (18:51)
[2024-01-19] MEDS ORDERED: FAMOTIDINE 40 MG TABLET PO PRN (20:37)
[2024-01-19] MEDS: amLODIPine BESYLATE 5 MG TAB PO SCH (21:29)
[2024-01-20 05:06] LABS: Calcium 7.9 mg/dl (8.6-10.3); Creatinine Clr Calc Pharmacy 14.7 ml/min; Magnesium 1.8 mg/dl (1.7-2.4); Potassium 3.7 mmol/L (3.5-5.1)
[2024-01-20] MEDS: allopurinoL 100 MG TAB PO SCH (08:21)
--- NOTE | 2024-01-20 09:21 | Hospitalist Progress Note ---
Date of Service January 20, 2024 Assessment & Plan (1) Acute renal failure (ARF): Plan: 63-year-old man admitted with acute gastroenteritis related to COVID-19, oliguric acute kidney injury may be prerenal, urine sediment is active however so glomerulonephritis is possible. no evidence of obstruction on CT abdomen and pelvis sales team member consulting - discussed with Dr. Upton - continues to require hospitalization for IV fluids and electrolyte replacement, improving, potential discharge in 1-2 days - UOP sig improved at 3650 last 24h and 425 this am, Cr now decreasing from 12.5-->5.8, diarrhea resolved - sales team member sent following serological labs: ESR, complement panel, DAWN, ANCA, anti-GBM - all pending - hyponatremia persists but improved to 125 - cont oral sodium tablets - HAGMA resolved/resolving - reduced Nabicarb to 650 bid - potassium low normal - 3.7 - ordered 20 meq po potassium x 1, mag 1.8 - continue IVF with plasmalyte - continue monitoring serial BMP and UOP I updated his at bedside today (2) Gastroenteritis due to COVID-19 virus: Plan: has had diarrhea for 10 days which is on the unusual side for COVID ordered stool BioFire panel which is negative he reports no antibiotics in at least the past 6 months, C. difficile unlikely -resolved (3) Hypertension: Plan: lisinopril held for [facility] -BP has improved currently mildly hypertensive -increase amlodipine to usual 10 mg HS (4) Liver cirrhosis: Plan: history of alcohol use disorder, features of cirrhosis evident on CT abdomen including cirrhotic appearing liver and splenomegaly - INR 1.1, bilirubin normal, AST/ALT/alk phos normal Plan anemia - hemoglobin 12 after IV fluids, stable at 11.5 hypocalcemiamonitor since asymptomatic. albumin 3.0 facial rash - eczematous? trial topical steroids DVT prophylaxissubcu heparin 3 times daily Admission and Anticipated Discharge Date Admission Date: January 16, 2024 Subjective 1 soft BM yesterday no nausea, diarrhea facial rash - not itchy or painful feels well, no dyspnea urinating a lot Physical Exam 2 Physical Exam: PHYSICAL EXAMINATION Last 24h vital signs reviewed, see documentation in flowsheet General: comfortable appearing, no distress, alert sitting in bed HEENT: Normocephalic, atraumatic, pupils round and equal, sclerae anicteric, no conjunctival injection, moist mucus membranes Skin: erythematous papular rash along hairline of face, L cheek, appears more prominent than a few days ago Lungs: Normal respiratory effort. Clear to auscultation bilaterally. No RRW Heart: Regular rate and rhythm, no murmurs. No JVD Abdomen: Soft, nontender, nondistended. Bowel sounds present. Extremities: Warm, dry, well-perfused. No extremity edema. Neuro: Alert and oriented x 4, face symmetric, moves 4 extremities well Psych: Normal affect and behavior Results & Data Results & Data Vital Signs (Past 12 Hours) Vital Signs Temp Pulse Pulse Resp BP Pulse Ox O2 Del Method 01/20/24 08:16 98.2 F 64 16 135/70 98 Room Air 01/20/24 07:05 69 01/20/24 02:04 98.1 F 66 14 133/66 98 Room Air 01/19/24 23:38 98.2 F 70 16 137/71 98 Room Air 01/19/24 21:55 61 Laboratory Results 01/18/24 04:02 01/20/24 04:25 PG Care Time/CCT Total # of Minutes Spent Total Time Spent with Patient: Total time spent is greater than 50% in coordination of care (as documented) at patient's floor/unit and/or counseling patient: Coding Level of Care Code 30938 SUB INP/OBS CARE 2/35MIN Diagnoses Acute renal failure (ARF) N17.9 Acute renal failure type: unspecified Gastroenteritis due to COVID-19 virus U07.1; A08.39 Hypertension I10 Liver cirrhosis K74.60 (1) Acute renal failure (ARF) Acute renal failure type: unspecified Qualified Code(s): N17.9 - Acute kidney failure, unspecified
[2024-01-20] MEDS: POTASSIUM CHLORIDE CRTAB 20 MEQ TABCR PO STA (10:11)
--- NOTE | 2024-01-20 10:28 | Nephrology Progress Note ---
Date of Service January 20, 2024 Assessment & Plan (1) Acute renal failure (ARF): Plan: Non-oliguric. Creatinine continues to improve. Continue IVF to encourage urine output. Electrolytes acceptable (stable hyponatremia, improvement in metabolic acidosis and hypokalemia). Denies uremic symptoms. There is no emergent indication for dialysis at this time. Additional 2 L of plasmalyte ordered to infuse at 150 ml/hr. Potassium and magnesium supplementation provided. Close monitoring of electrolytes with repeat BMP tomorrow AM. Serologic evaluation pending. Continue IVF to encourage positive fluid balance. Document strict I/O's. Medications are appropriate for kidney function. (2) Metabolic acidosis: Plan: Attributed to GI losses and acute kidney injury. Continue oral NaHCO3 as Rx. (3) Hyponatremia: Plan: Chronic. Asymptomatic. Mild to moderate. Volume/solute depleted. IVF + oral sodium replacement ordered. (4) COVID-19: (5) Liver cirrhosis: (6) Gastroenteritis due to COVID-19 virus: Admission and Anticipated Discharge Date Admission Date: January 16, 2024 Subjective No acute events overnight. Wade feels reasonably well this AM. No fevers or chills. Appetite is good. He is tolerating IVF. Increased urine output reported this AM. He notes that his urine is clear yellow. He had 2 soft bowel movements yesterday. No melena or hematochezia. Review of Systems Review of Systems: All systems reviewed & are unremarkable except as noted in HPI & below Physical Exam Constitutional: well developed; no acute distress Eyes: + anicteric sclerae; no conjunctival abn ormality ENMT: Mouth: no oral mucosal abnormality and oral mucous membranes not dry Neck: normal visual inspection and trachea midline Respiratory: normal respiratory effort Auscultation: lungs clear to auscultation bilaterally Cardiovascular: Rate/Rhythm: regular rate Heart Sounds: normal S1 and normal S2 Extremities: no edema Musculoskeletal: Extremities: no cyanosis and no clubbing Skin: normal turgor; no lesions Neurologic: Motor/Sensory: no tremor and no asterixis Psychiatric: Orientation: alert and oriented x 3 Results & Data Vital Signs (Past 12 Hours) Vital Signs Temp Pulse Pulse Resp BP Pulse Ox O2 Del Method 01/20/24 08:16 36.8 C 64 16 135/70 98 Room Air 01/20/24 07:05 69 12/01/24 02:04 36.7 C 66 14 133/66 98 Room Air 01/19/24 23:38 36.8 C 70 16 137/71 98 Room Air Laboratory Results Laboratory Results - last 24 hr 01/19/24 01/20/24 16:39 04:25 Sodium 123 L 125 L Potassium 3.4 L 3.7 Chloride 89 L 93 L Carbon Dioxide 22 23 Anion Gap 12 H 9 BUN 61 H 53 H Creatinine 8.95 H* D 5.88 H* D Est Cr Clr Drug Dosing 9.6 14.7 eGFR 6.10 10.09 BUN/Creatinine Ratio 6.8 L 9.0 L Glucose 107 H 99 Calcium 7.5 L 7.9 L Magnesium 1.8 PG Care Time/CCT Total # of Minutes Spent Total Time Spent with Patient: Total time spent is greater than 50% in coordination of care (as documented) at patient's floor/unit and/or counseling patient: Coding Level of Care Code 78123 SUB INP/OBS CARE 3/50MIN Diagnoses Acute renal failure (ARF) N17.9 Acute renal failure type: unspecified Metabolic acidosis E87.20 Hyponatremia E87.1 COVID-19 U07.1 Liver cirrhosis K74.60 Gastroenteritis due to COVID-19 virus U07.1; A08.39 (1) Acute renal failure (ARF) Acute renal failure type: unspecified Qualified Code(s): N17.9 - Acute kidney failure, unspecified
[2024-01-20] MEDS: PLASMA-LYTE A 1,000 ML IV SCH (10:41)
[2024-01-20] MEDS: SODIUM BICARBONATE 650 MG TAB PO SCH (15:19)
[2024-01-20] MEDS: HYDROCORTISONE 1% CRM 30 GM TUBE EXT SCH (21:25)
[2024-01-21 05:25] LABS: Calcium 8.4 mg/dl (8.6-10.3); Creatinine Clr Calc Pharmacy 37.1 ml/min; Magnesium 1.3 mg/dl (1.7-2.4)
[2024-01-21] MEDS: MAGNESIUM SULFATE / D5W 1 GM/100 ML BAG IV SCH (08:56)
--- NOTE | 2024-01-21 10:28 | Nephrology Progress Note ---
Date of Service January 21, 2024 Assessment & Plan (1) Acute renal failure (ARF): Plan: Non-oliguric. Creatinine continues to improve. Recovery phase of ATN. Magnesium supplementation provided. Close monitoring of electrolytes with repeat BMP tomorrow AM. Serologic evaluation pending. Document strict I/O's. Medications are appropriate for kidney function. Plan of care discussed with Dr. Deluna this AM. (2) Metabolic acidosis: Plan: Attributed to GI losses and acute kidney injury. Continue oral NaHCO3 as Rx. (3) Hyponatremia: Plan: Chronic. Improving with recovery of kidney function. Oral NaCl will be stopped. (4) COVID-19: (5) Liver cirrhosis: (6) Gastroenteritis due to COVID-19 virus: Admission and Anticipated Discharge Date Admission Date: January 16, 2024 Subjective No acute events overnight. Polyuric. Diarrhea improved. Overall, Wade feels well. Review of Systems Review of Systems: All systems reviewed & are unremarkable except as noted in HPI & below Physical Exam Constitutional: well developed; no acute distress Eyes: + anicteric sclerae; no conjunctival abn ormality ENMT: Mouth: no oral mucosal abnormality and oral mucous membranes not dry Neck: normal visual inspection and trachea midline Respiratory: normal respiratory effort Auscultation: lungs clear to auscultation bilaterally Cardiovascular: Rate/Rhythm: regular rate Heart Sounds: normal S1 and normal S2 Vessels: no JVD Extremities: no edema Musculoskeletal: Extremities: no cyanosis and no clubbing Skin: normal turgor; no lesions Neurologic: Motor/Sensory: no tremor and no asterixis Psychiatric: Orientation: alert and oriented x 3 Results & Data Vital Signs (Past 12 Hours) Vital Signs Temp Pulse Pulse Resp BP Pulse Ox O2 Del Method 01/21/24 08:17 37.1 C 66 14 144/72 H 98 Room Air 01/21/24 07:01 72 01/21/24 03:58 36.8 C 82 16 159/66 H 97 Room Air 01/20/24 23:59 37.1 C 78 16 157/70 H 96 Room Air Laboratory Results Laboratory Results - last 24 hr 01/21/24 04:17 Sodium 133 L Potassium 4.0 Chloride 98 Carbon Dioxide 27 Anion Gap 8 BUN 35 H Creatinine 2.33 H D Est Cr Clr Drug Dosing 37.1 eGFR 30.65 BUN/Creatinine Ratio 15.0 Glucose 101 H Calcium 8.4 L Magnesium 1.3 L PG Care Time/CCT Total # of Minutes Spent Total Time Spent with Patient: Total time spent is greater than 50% in coordination of care (as documented) at patient's floor/unit and/or counseling patient: Coding Level of Care Code 07206 SUB INP/OBS CARE 3/50MIN Diagnoses Acute renal failure (ARF) N17.9 Acute renal failure type: unspecified Metabolic acidosis E87.20 Hyponatremia E87.1 COVID-19 U07.1 Liver cirrhosis K74.60 Gastroenteritis due to COVID-19 virus U07.1; A08.39 (1) Acute renal failure (ARF) Acute renal failure type: unspecified Qualified Code(s): N17.9 - Acute kidney failure, unspecified
[2024-01-21] MEDS ORDERED: COUGH DROP (SUGAR FREE) LOZ 24 LOZ/1 BOX BUCCAL PRN (15:04)
--- NOTE | 2024-01-21 16:17 | Hospitalist Progress Note ---
Date of Service January 21, 2024 Assessment & Plan (1) Acute renal failure (ARF): Plan: 63-year-old man admitted with acute gastroenteritis related to COVID-19, oliguric acute kidney injury may be prerenal, urine sediment is active however so glomerulonephritis is possible. no evidence of obstruction on CT abdomen and pelvis [employer] consulting - discussed with Dr. Upton - would like to observe off IV fluids today likely discharge home tomorrow morning if stable. We will recheck his labs at 4 PM today and if improving potential for discharge tonight - UOP 4500 last 24h and weight decreased, Cr now decreasing from 17 on admission down to 2.33, diarrhea resolved - [employer] sent following serological labs: ESR, complement panel, DAWN, ANCA, anti-GBM - all pending - hyponatremia persists but improved to 133, stopped sodium chloride tablets - HAGMA resolved - stopped bicarb tablets - has had hypokalemia, replaced, normal at 4.0 today - has had hypomagnesemia worse today at 1.3, replacing with 3 g IV recheck this afternoon and in a.m. - IV fluids held since this morning - continue monitoring serial BMP and UOP I updated his at bedside 01/19 (2) Gastroenteritis due to COVID-19 virus: Plan: has had diarrhea for 10 days which is on the unusual side for COVID ordered stool BioFire panel which is negative he reports no antibiotics in at least the past 6 months, C. difficile unlikely -resolved (3) Hypertension: Plan: lisinopril held for [facility] -BP has improved currently mildly hypertensive -increased amlodipine to usual 10 mg HS (4) Liver cirrhosis: Plan: history of alcohol use disorder, features of cirrhosis evident on CT abdomen including cirrhotic appearing liver and splenomegaly - INR 1.1, bilirubin normal, AST/ALT/alk phos normal Plan anemia - hemoglobin 12 after IV fluids, stable at 11.5 hypocalcemiamonitor since asymptomatic, improving. albumin 3.0 facial rash - eczematous or acne? trial topical steroids since he had similar rash in the past that responded to steroids DVT prophylaxissubcu heparin 3 times daily Admission and Anticipated Discharge Date Admission Date: January 16, 2024 Subjective diarrhea has resolved, urinating a lot, continues to feel well really would like to go home soon Physical Exam 2 Physical Exam: PHYSICAL EXAMINATION Last 24h vital signs reviewed, see documentation in flowsheet General: comfortable appearing, no distress, alert sitting in bed HEENT: Normocephalic, atraumatic, pupils round and equal, sclerae anicteric, no conjunctival injection, moist mucus membranes Skin: erythematous papular rash along hairline of face, L cheek with some tiny pustules especially on cheek, unchanged Lungs: Normal respiratory effort. Clear to auscultation bilaterally. No RRW Heart: Regular rate and rhythm, no murmurs. No JVD Abdomen: Soft, nontender, nondistended. Bowel sounds present. Extremities: Warm, dry, well-perfused. No extremity edema. Neuro: Alert and oriented x 4, face symmetric, moves 4 extremities well Psych: Normal affect and behavior Results & Data Results & Data Vital Signs (Past 12 Hours) Vital Signs Temp Pulse Pulse Resp BP Pulse Ox O2 Del Method 01/21/24 14:36 74 01/21/24 10:46 98.6 F 68 14 150/76 H 97 Room Air 01/21/24 08:17 98.8 F 66 14 144/72 H 98 Room Air 01/21/24 07:01 72 Laboratory Results 01/18/24 04:02 01/21/24 04:17 PG Care Time/CCT Total # of Minutes Spent Total Time Spent with Patient: Total time spent is greater than 50% in coordination of care (as documented) at patient's floor/unit and/or counseling patient: Coding Level of Care Code 12046 SUB INP/OBS CARE 2/35MIN Diagnoses Acute renal failure (ARF) N17.9 Acute renal failure type: unspecified Gastroenteritis due to COVID-19 virus U07.1; A08.39 Hypertension I10 Liver cirrhosis K74.60 (1) Acute renal failure (ARF) Acute renal failure type: unspecified Qualified Code(s): N17.9 - Acute kidney failure, unspecified
[2024-01-21 16:25] VITALS: RESP 18; TEMP 98.8; O2SAT 96
[2024-01-21 17:31] LABS: Calcium 8.6 mg/dl (8.6-10.3); Creatinine Clr Calc Pharmacy 50.3 ml/min; Magnesium 1.7 mg/dl (1.7-2.4); Potassium 3.7 mmol/L (3.5-5.1)
[2024-01-21 18:07] VITALS: BP 96/55; PULSE 63
--- NOTE | 2024-01-21 18:09 | Discharge Summary ---
Discharge Summary Date of Service January 21, 2024 Principal Dx & Hospital Course #1 = Principal Diagnosis (1) Acute renal failure (ARF): 63-year-old man admitted with acute gastroenteritis related to COVID-19, oliguric acute kidney injury may be prerenal, urine sediment is active however so glomerulonephritis is possible. no evidence of obstruction on CT abdomen and pelvis treated with IV fluids, temporarily required bicarb drip then oral bicarb for metabolic acidosis, resolved. BUN/Cr normalizing. Has had solute wasting and required extended IV fluids, sodium tablets for hyponatremia, replacement for hypokalemia and hypomagnesemia. This has all slowed down significantly. Tolerated being off IV fluids today with improvement in BUN/Cr and stable sodium compared to AM labs. Making excellent UOP at this time and able to hydrate orally. -discharged with potassium 20 meq daily, slo-mag once (or twice) a day if tolerated -labs ordered to be drawn in 1 week: BMP, mag -follow up with bullet lubricant mixer Dr. Upton within 2 weeks Meds held: indomethacin, lisinopril. Counseled to avoid NSAIDS Labs pending: DAWN, anti-proteinase 3, anti-MPO, ANCA, anti-GBM, complement C3 & C4, CH50 (2) Gastroenteritis due to COVID-19 virus: had diarrhea for 10+ days which is on the unusual side for COVID ordered stool [employer] panel which is negative he reports no antibiotics in at least the past 6 months, C. difficile unlikely -resolved, continue prn imodium (3) Hypertension: lisinopril held for [facility] -continue amlodipine 10 mg daily (4) Liver cirrhosis: history of alcohol use disorder, features of cirrhosis evident on CT abdomen including cirrhotic appearing liver and splenomegaly - INR 1.1, bilirubin normal, AST/ALT/alk phos normal - counseled alcohol cessation Plan anemia - hemoglobin 12 after IV fluids, stable at 11.5 -follow up as outpatient facial rash - eczematous or acne? trial topical steroids since he had similar rash in the past that responded to steroids Notes For Next Care Provider BMP and Mag in 1 week Medication Changes From Visit HELD: lisinopril, indomethacin NEW: potassium chloride, magnesium Admission HPI Per Admitting Provider The patient is a 63-year-old male with a past medical history including GERD without esophagitis, hypertension, alcohol withdrawal, alcohol dependence, and gout. He has been having issues with flulike symptoms, with low-grade fevers and cough, with generalized muscle aches, and had been seen in the outpatient office with routine laboratories performed on 01/09 with a creatinine of 1.13. Due to persistent symptoms, patient had outpatient laboratories performed on the day of 01/09, and creatinine at that point was 18.05, and he was referred to the ED for evaluation for admission. His principal symptoms continue to be that of primarily of fatigue, generalized muscle aches and lethargy. Discharge Exam PHYSICAL EXAMINATION Last 24h vital signs reviewed, see documentation in flowsheet General: comfortable appearing, no distress, alert sitting in bed HEENT: Normocephalic, atraumatic, pupils round and equal, sclerae anicteric, no conjunctival injection, moist mucus membranes Skin: erythematous papular rash along hairline of face, L cheek with some tiny pustules especially on cheek, unchanged Lungs: Normal respiratory effort. Clear to auscultation bilaterally. No RRW Heart: Regular rate and rhythm, no murmurs. No JVD Abdomen: Soft, nontender, nondistended. Bowel sounds present. Extremities: Warm, dry, well-perfused. No extremity edema. Neuro: Alert and oriented x 4, face symmetric, moves 4 extremities well Psych: Normal affect and behavior Discharge Plan Discharge Items Patient Disposition: Home - Self-Care Reason For Visit: ACUTE RENAL FAILURE, COVID GASTROENTERITIS Discharge Diagnosis: Acute kidney injury, COVID-19 gastroenteritis Activity: Resume your previous activity Non-emergency contact: Primary Care Provider and Assembler Body Call non-emergency contact if: you have any medication questions and your symptoms worsen Follow-up/Referrals: Triston Weber CRNP [Primary Care Provider] - Campbell Upton DO [Physician] - Diet: Regular Ambulatory Orders: Basic Metabolic Panel (Routine) Timeframe: 1 Week Location: Determined by Patient Ordered By: Karla Deluna Magnesium (Routine) Timeframe: 1 Week Location: Determined by Patient Ordered By: Karla Robertson Attending Provider Instructions: You were treated for acute kidney injury related to gastroenteritis from COVID- 19 Diarrhea is resolving - its ok to take Imodium as directed if you have loose stool - buy over the counter Take a daily potassium and magnesium supplement for now - the potassium is a prescription which I sent, and magnesium is over the counter - look for the extended release or "Slo-Mag" type and take 1 tab once or twice a day if you can tolerate it. Magnesium could make the diarrhea worse, so stop it if its causing significant diarrhea. Stay well hydrated. Sports drinks are ok for the short term while your kidneys are recovering. (for half-way health they have too much sweetener and sodium, unless you're sweating/exercising a lot) Don't take indomethacin until Dr. Upton says its ok - this can reinjure your kidneys. If you have gout flare there are other medications that can be used instead Don't take NSAIDS like ibuprofen/motrin/advil or naproxen/aleve because these can reinjure your kidneys. Acetaminophen is safe to take, maximum of 2000 mg per 24h Come in to a [facility] lab to have a blood draw in one week to check electrolytes and kidney function. Follow up with Dr. Upton within 2 weeks Go to the ER if you are having low urine output or dark/tea colored urine or lightheadedness, weakness You have signs of liver cirrhosis (liver scarring) on CT scan of your abdomen. This is related to drinking too much alcohol over your lifespan. It is asymptomatic right now, however, if you don't avoid alcohol it will progress and you could develop liver failure. I recommend avoiding all alcohol at this point. It was a pleasure taking care of you in the hospital, Karla Deluna MD Pending Studies at Discharge: No Stand-Alone Forms: My [facility], Smoking Cessation Medications and DC Order Prescriptions: New potassium chloride 20 mEq tablet extended release 20 meq PO DAILY Qty: 14 0RF loperamide 2 mg Capsule 2 mg PO Q2H PRNQty: 0 0RF Slow-Mag 71.5 mg tablet,delayed release (DR/EC) 71.5 mg PO DAILY Qty: 30 0RF Rx Instructions: extended (or delayed) release magnesium, buy over the counter. once or twice daily, until stopped by bullet lubricant mixer hydrocortisone 1 % Ointment 1 applic EXT BID Qty: 0 0RF Rx Instructions: buy over the counter. use for 7 days for face rash Continued sildenafil 50 mg tablet 50 mg PO DAILY PRN (Reason: sexual activity) Qty: 10 4RF Rx Instructions: administer 30 minutes to 4 hours before activity amlodipine 10 mg tablet 10 mg PO HS Qty: 90 1RF ondansetron HCl 4 mg tablet 4 mg PO Q8H PRN (Reason: nausea and vomiting) Qty: 30 0RF benzonatate 200 mg capsule 200 mg PO TID PRN (Reason: cough) Qty: 30 0RF cetirizine [Zyrtec] 10 mg tablet 10 mg PO HS PRN (Reason: Allergies) famotidine [Pepcid] 40 mg tablet 40 mg PO BID PRN (Reason: Acid Reflux) allopurinol 100 mg tablet 100 mg PO QAM Held indomethacin 50 mg capsule 50 mg PO BID PRN (Reason: Gout Flare) Qty: 60 1RF Hold Instructions: Resume on 02/18/24. hold until resumed by bullet lubricant mixer Rx Instructions: administer with food or milk lisinopril 30 mg tablet 30 mg PO QAM Hold Instructions: Resume on 02/18/24. hold until resumed by bullet lubricant mixer Discharge Orders: Discharge Order (Routine); Ordered 01/21/24 Ordered By: Karla Deluna Admission Data Admit Date/Time: 01/16/24 20:07 Attending Provider: Karla Deluna Admit Provider: Johnathon Montejo Primary Care Provider: Triston Weber Other Providers: Johnathon Montejo; Campbell Upton Hospital Stay Data Consultations 01/16/24 19:26 ED Decision to Admit Stat 01/16/24 21:42 Consult Nephrology Routine Diagnostic Imagining Performed 01/16/24 18:33 CT abd pelvis wo con Stat Pending Results Patient Have Any Pending Studies at Discharge: No Discharge Instructions Given to Patient (Per Discharging Provider) You were treated for acute kidney injury related to gastroenteritis from COVID- 19 Diarrhea is resolving - its ok to take Imodium as directed if you have loose stool - buy over the counter Take a daily potassium and magnesium supplement for now - the potassium is a prescription which I sent, and magnesium is over the counter - look for the extended release or "Slo-Mag" type and take 1 tab once or twice a day if you can tolerate it. Magnesium could make the diarrhea worse, so stop it if its causing significant diarrhea. Stay well hydrated. Sports drinks are ok for the short term while your kidneys are recovering. (for half-way health they have too much sweetener and sodium, unless you're sweating/exercising a lot) Don't take indomethacin until Dr. Upton says its ok - this can reinjure your kidneys. If you have gout flare there are other medications that can be used instead Don't take NSAIDS like ibuprofen/motrin/advil or naproxen/aleve because these can reinjure your kidneys. Acetaminophen is safe to take, maximum of 2000 mg per 24h Come in to a [facility] lab to have a blood draw in one week to check electrolytes and kidney function. Follow up with Dr. Upton within 2 weeks Go to the ER if you are having low urine output or dark/tea colored urine or lightheadedness, weakness You have signs of liver cirrhosis (liver scarring) on CT scan of your abdomen. This is related to drinking too much alcohol over your lifespan. It is asymptomatic right now, however, if you don't avoid alcohol it will progress and you could develop liver failure. I recommend avoiding all alcohol at this point. It was a pleasure taking care of you in the hospital, Karla Deluna MD Total Time Total Time Spent Total Time Spent (In Minutes): I personally spent: 45 minutes today on clinical care activities including: reviewing chart notes and vital signs reviewing labs discussion with bullet lubricant mixer examining and counseling the patient writing orders writing prescriptions, discharge instructions documentation Coding Level of Care Code 43038 INP/OBS DISCH >30 MIN Diagnoses Acute renal failure (ARF) N17.9 Acute renal failure type: unspecified Gastroenteritis due to COVID-19 virus U07.1; A08.39 Hypertension I10 Liver cirrhosis K74.60
[2024-01-21] MEDS ORDERED: amLODIPine BESYLATE 5 MG TAB PO SCH (21:00)
[2024-01-23 11:52] LABS: ANCA Screen Negative (Negative); Anti Nuclear Antibody Screen NEGATIVE (NEGATIVE); Anti-Glom Basement Antibody <1.0 AI (<1.0); Myeloperoxidase Ab <1.0 AI (<1.0); Proteinase-3 AB <1.0 AI (<1.0)
[2024-01-23 16:27] LABS: Complement C3 85 mg/dL (82-185); Complement Total(CH50) 54 U/mL (31-60)
== END 2024-01-21 18:52 | disposition home or self-care (01) | DRG 682 ==
LOC: ED 17:49 → 4W 20:07 → SUATTDRO 20:07 → 4W 21:16